=== PATIENT | female | born 2000 | race Caucasian/White ===

== ENCOUNTER → 2018-02-27 13:13 | Outpatient (CLI) | payer OTHER, MEDICAID, SELFPAY ==
[2018-02-27 14:35] LABS: Add Manual Diff / Slide Review NO; Basophils Percent Auto 0.8 % (0-2); Eosinophils Percent Auto 1.1 % (2-4); Hematocrit 39.1 % (36-46); Hemoglobin 12.8 g/dL (12.0-16.0); Lymphocytes Percent Auto 28.6 % (25-40); Mean Corpuscular HGB Conc 32.6 % (30-36); Mean Corpuscular Volume 79.7 fL (80-100); Neutrophils Absolute Auto 5600 /uL (3000-5900); Neutrophils Percent Auto 63.5 % (50-75); Platelet Count 308 X10^3/uL (150-400); Red Blood Cell Count 4.91 X10^6/uL (4.0-5.2); Red Cell Distribution Width 15.3 % (11.6-14.8); White Blood Cell Count 8.9 X10^3/uL (4.5-11.0)
[2018-02-27 16:01] LABS: Hepatitis B Surface Antigen NEGATIVE s/c (NEGATIVE)
[2018-02-27 16:20] LABS: HIV 1 and 2 Antibody NEGATIVE (NEGATIVE); Hep C Virus Ab w/Reflex Quant NEGATIVE s/c (NEGATIVE)
[2018-03-03 09:41] LABS: Rapid Plasma Reagin NON-REACTIVE
== END ==
PROVIDERS: Visit Provider Obstetrics & Gynecology
DX: Z34.91 Encounter for supervision of normal pregnancy, unspecified, first trimester (principal); Z3A.08 8 weeks gestation of pregnancy
CPT/HCPCS: 36415; 80055; 86695; 86696; 86703; 86787; 86803; 86850; 86900; 86901; 87086

== ENCOUNTER → 2018-04-25 15:57 | Outpatient (CLI) | payer OTHER, MEDICAID, SELFPAY ==
[2018-05-02 09:52] LABS: AFP, Serum 29.9 ng/mL; Calc Gestational Age 17.1; Cigarette Smoker N; Donated Egg NOT GIVEN; Donor Egg Age NOT GIVEN; Estriol, Free 0.72 ng/mL; Inhibin A, Dimeric 99 pg/mL; Maternal Weight 285 lbs; Number of Fetuses NOT GIVEN; Previous Pregnancy Down Syndro NOT GIVEN; hCG, MoM 1.35; hCG, Serum 26.8 IU/mL
== END ==
PROVIDERS: Visit Provider Obstetrics & Gynecology
DX: Z34.92 Encounter for supervision of normal pregnancy, unspecified, second trimester (principal); Z3A.16 16 weeks gestation of pregnancy
CPT/HCPCS: 36415; 82105; 82677; 84702; 86336

== ENCOUNTER → 2018-05-19 15:44 | Outpatient (CLI) | payer OTHER, MEDICAID, SELFPAY ==
--- NOTE | 2018-05-19 15:47 | DI.US.S_ITS ---
PROCEDURE: US OB >= 14 WEEKS FETUS INDICATIONS: Anatomy Survey OUTSIDE/PRIOR DATING DATA: Last menstrual period (LMP): Unknown. LMP-based estimated date of delivery (VLADIMIR): N./A.. First dating scan (date and location): 02/24/18. Estimated date of delivery (VLADIMIR) from first dating scan: 10/02/18. TECHNIQUE: Real-time scanning was performed of the fetus, with image documentation and biometric measurements. Endovaginal scanning: Not requested. COMPARISON: [facility], , OB >= 14 WEEKS FETUS, 04/25/2018, 15:46. FINDINGS: General: A single living intrauterine gestation is present. Presentation: Transverse. Placenta: Placental position is anterior, without previa. Amniotic fluid index: 17.3 cm, normal range is 5-24 cm. heart rate: 139 beats per minute. Maternal cervical canal: 4.2 cm long. Normal lower limit is 2.5 cm. biometrics: Biparietal diameter: 20 weeks 2 days Head circumference: 21 weeks Abdominal circumference: 21 weeks 5 days Femur length: 21 weeks 1 day Estimated gestational age from initial scan: 20 weeks 4 days Composite gestational age from present scan: 21 weeks Estimated weight and percentile: 419 g; 86 percentile Measurement variability for biometric dating: +/- 7 days from 14 weeks to 15 weeks 6 days gestation, +/- 10 days from 16 weeks to 21 weeks 6 days gestation, +/- 2 weeks from 22 weeks to 27 weeks 6 days gestation, +/- 3 weeks for 28 weeks gestation or later. weight reference: 4500 g or EFW >90/95% is considered macrosomia or large for gestational age. EFW <10% is small for gestational age. EFW 5% or less is considered intra-uterine growth restriction. Anatomic survey: Neuro: Ventricles are non-dilated at less than 10 mm. Cisterna magna is normal at 3-11 mm. Cerebellum is normal in size and morphology. Nuchal skin fold: Normal at less than 6 mm between 14-21 weeks gestational age. Face: Nose and lips, facial profile are normal. Spine: No evidence for spina bifida. Heart: 4-chambered heart is present, with normal ventricular outflow tracts. Diaphragm: Diaphragm is intact. Stomach: Left-sided stomach is present. Kidneys: No hydronephrosis. Normal is less than 5 mm in 2nd trimester, less than 7 mm in 3rd trimester. Cord: 3-vessel cord has orthotopic insertion. Bladder: Normal in size. Extremities: All 4 extremities identified. IMPRESSION: 1. Single living IUP redemonstrated and interval growth is upper limits of normal. 2. Normal anatomic survey. Dictated by: Bill LAUREN Interpreted: Chino Duran MD on 05/19/2018 at 16:57 Approved by: Chino Duran M.D. on 05/19/2018 at 17:24
== END ==
PROVIDERS: Visit Provider Obstetrics & Gynecology
DX: Z34.82 Encounter for supervision of other normal pregnancy, second trimester (principal); Z3A.21 21 weeks gestation of pregnancy
CPT/HCPCS: 76811

== ENCOUNTER → 2018-06-29 13:36 | Outpatient (CLI) | payer OTHER, MEDICAID, SELFPAY ==
[2018-06-29 15:57] LABS: Hematocrit 35.4 % (36-46); Hemoglobin 11.5 g/dL (12.0-16.0)
[2018-06-29 16:24] LABS: GTT (PREG) 1 Hour PP 50gm Dose 74 mg/dL (76-139)
== END ==
PROVIDERS: Visit Provider Obstetrics & Gynecology
DX: Z34.82 Encounter for supervision of other normal pregnancy, second trimester (principal)
CPT/HCPCS: 36415; 82950; 85014; 85018

== ENCOUNTER → 2018-09-11 14:27 | Outpatient (CLI) | payer OTHER, SELFPAY ==
[2018-09-12 13:53] LABS: Strep Grp B PCR POS for Grp B Strep
== END ==
PROVIDERS: Visit Provider Obstetrics & Gynecology
DX: Z3A.37 37 weeks gestation of pregnancy (principal)
CPT/HCPCS: 87653

== ENCOUNTER 2018-09-25 11:18 | Inpatient (IN) | payer OTHER, MEDICAID, SELFPAY ==
[2018-09-25] MEDS: LACTATED RINGERS 1,000 ML 999 ML IV ×2 (12:31→13:21)
[2018-09-25 12:33] VITALS: BP 130/82
[2018-09-25 13:14] LABS: Add Manual Diff / Slide Review NO; Basophils Absolute Auto 0 /uL (0-100); Basophils Percent Auto 0.4 % (0-2); Eosinophils Absolute Auto 100 /uL (0-450); Eosinophils Percent Auto 0.7 % (2-4); Hematocrit 33.5 % (36-46); Hemoglobin 10.9 g/dL (12.0-16.0); Lymphocytes Absolute Auto 2400 /uL (1100-4500); Mean Corpuscular HGB Conc 32.4 % (30-36); Mean Corpuscular Hemoglobin 25.6 PG (26-34); Monocytes Absolute Auto 500 /uL (0-900); Monocytes Percent Auto 4.7 % (3-14); Neutrophils Absolute Auto 8200 /uL (1500-7000); Neutrophils Percent Auto 73.2 % (50-75); Platelet Count 290 X10^3/uL (150-400); Red Blood Cell Count 4.24 X10^6/uL (4.0-5.2); Red Cell Distribution Width 15.2 % (11.6-14.8); White Blood Cell Count 11.2 X10^3/uL (4.5-11.0)
--- NOTE | 2018-09-25 13:18 | PM.PREOP ---
Pre-operative Note Interval Note History & Physical reviewed/Exam performed by Physician: Yes Changes to H&P: No
[2018-09-25] MEDS: CEFAZOLIN 2 GM/100 ML FROZ.PIGGY IV (13:29)
[2018-09-25] MEDS: CEFAZOLIN 1 GM VIAL IV (13:55)
--- NOTE | 2018-09-25 14:03 | SUR.OPER ---
live female at 1358, apgars 8/9
[2018-09-25] MEDS: ACETAMINOPHEN IV 1,000 MG/100 ML VIAL 400 MG IV (14:10)
--- NOTE | 2018-09-25 14:10 | SUR.OPER ---
Supine on Padded OR bed, head on pillow, safety belt at thigh, arms secured on padded arm boards at <90 degrees abduction. Bump under right buttock. Legs uncrossed with pillow under knees, gel pad to heels, tape over blanket to lower legs.
[2018-09-25 14:52] VITALS: BP 114/68; PULSE 65; RESP 15; TEMP 36.3; O2SAT 95
[2018-09-25 14:56] VITALS: BP 117/64; PULSE 71; RESP 16; O2SAT 96
[2018-09-25 15:00] VITALS: BP 124/67; PULSE 61; RESP 16; O2SAT 96
[2018-09-25] MEDS: LACTATED RINGERS 1,000 ML 125 ML IV (15:30)
--- NOTE | 2018-09-25 19:52 | P.OP_ITS ---
Operative Date/Time/Diagnoses Date of procedure: 09/25/18 Time of procedure: 14:45 Pre-op diagnosis: 39 weeks gestation Previous section Post-op diagnosis: same Procedure: Procedures Operation Date: 09/25/18 13:00 Actual Procedures Side Surgeon p Section-Repeat Aleah Sol MD Indications: 39 weeks gestation Previous section Surgeon: Aleah Sol Spike Machine Operator: Leilani De La Cruz Anesthesia Type: Spinal (With Duramorph) Operative Notes Findings: Live female infant in the vertex presentation Normal uterus, tubes, and ovaries Normal amniotic fluid volume Closure Type: primary Specimen(s): other (Cord blood, placenta) Applied: catheter Estimated blood loss (mL): 600 Blood products transfused: none Procedure in detail: The patient was taken to the operating room where she was placed in the seated position. Spinal anesthesia with Duramorph was administered. The patient was then placed in the dorsal supine position with a leftward tilt. She was prepped and draped in the usual sterile fashion. A timeout was performed. After spinal analgesia was found to be adequate, a Pfannenstiel skin incision was made through the previous incision and carried through to the underlying layer fascia. The fascia was nicked in the midline, and the incision extended bilaterally with the Rebollar scissors. The superior aspect of the fascial incision was grasped with a Bettie clamps, elevated, and the underlying rectus muscles dissected off sharply and bluntly. Attention was then turned to the inferior aspect of this incision which in a similar fashion was grasped with a [place] clamps, elevated, and the underlying rectus muscles dissected off sharply and bluntly. The rectus muscles were in the midline. The peritoneum was identified, grasped between 2 hemostats, and entered sharply with the Metzenbaum scissors. This incision was extended superiorly and inferiorly with good visualization of the bladder. The bladder blade was inserted. The vesicouterine peritoneum was identified, grasped with the pickup, and entered sharply with the Metzenbaum scissors. This incision was extended bilaterally, and the bladder flap was created digitally. The bladder blade was reinserted. The lower uterine segment was incised in a transverse fashion with the scalpel. Upon entering the amniotic sac there was moderate amount of clear amniotic fluid. The 's head was delivered without difficulty. The nose and mouth were suctioned with bulb suction. The remainder of the body delivered without difficulty. The cord was double clamped and cut. The was handed off to waiting RN and RT. The placenta was delivered manually. The uterus was cleared of all clots and debris. The uterine incision was repaired with #1 chromic in a running interlocking fashion, and a second layer the same suture was used for an imbricating layer. For was found to be a ?Rent just below the uterine incision. This was closed with a running interlocking suture and then an imbricating layer for hemostasis. The tubes and ovaries were examined and were found to be normal. The gutters were cleared of all clots and debris. Hemostasis was achieved. The bladder flap was reapproximated using 2-0 Vicryl in a running fashion. The parietal peritoneum was closed using 2-0 Vicryl in a running fashion. The fascia was reapproximated using 0 Vicryl in a running fashion. The subcutaneous layer was copiously irrigated with warm normal saline. 5 simple interrupted sutures of 3-0 Vicryl were placed to reapproximate the subcutaneous layer. The skin was closed with 4-0 undyed Vicryl in a subcuticular fashion. Steri-Strips were placed. An Aquacell dressing was placed. The uterus was expressed of a small amount of old blood. Sponge, lap, and instrument counts were correct x-2. The patient tolerated the procedure well, and was taken to PACU in stable condition. Complications: none Post-operative Condition: stable Disposition: PACU Plan for aftercare: To Center after recovery
[2018-09-25] MEDS: KETOROLAC 30 MG/ML VIAL IV (21:47)
[2018-09-26] MEDS: KETOROLAC 30 MG/ML VIAL IV ×2 (05:27→11:31)
[2018-09-26] MEDS: OXYCODONE/ACETAMINOPHEN 5/325 TABLET 2 TAB PO ×4 (05:36→21:30)
[2018-09-26 07:30] LABS: Hematocrit 31.8 % (36-46); Hemoglobin 10.3 g/dL (12.0-16.0)
[2018-09-26] MEDS: DOCUSATE 250 MG CAPSULE PO (11:33)
[2018-09-26] MEDS: PRENATAL VIT,CALC/IRON/FOLIC 1 TABLET 1 TAB PO (11:33)
[2018-09-26] MEDS: LANOLIN OINT 7 GM 1 APPLIC TOP (16:45)
[2018-09-26 17:14] VITALS: TEMP 37
--- NOTE | 2018-09-26 19:29 | PM.OBPN.1 ---
Subjective - OB Interval history: Patient is a 18-year-old 2 para 2 postop day # 1 status post repeat low-transverse section Patient comments: no complaints, pain well controlled, tolerating diet and other (Voided without the catheter) [place] baby status: doing well [place] feeding status: exclusively breast feeding Date Patient Seen: 09/26/18 Time Patient Seen: 18:00 Exam Vital Signs (past 8 hours): - 09/26/18 17:14 Temperature 98.6 F Oxygen Delivery Method Nasal Cannula Narrative Exam Narrative: Generally: Patient is sitting up in bed, holding , no acute distress Lungs: Clear to auscultation bilaterally Cardiovascular: Regular rate and rhythm Abdomen: Soft, good bowel sounds Fundus: Firm at U -1 Incision: Clean dry and intact with Aquacel dressing Extremities 1+ edema, negative Zeferino's Objective Labs Result Diagrams: 09/26/18 06:55 Labs: Laboratory Results - last 24 hr 09/26/18 06:55 Hgb 10.3 L Hct 31.8 L Assessment & Plan (1) Status post repeat low transverse section: Status: Acute Assessment and plan: Assessment: Postop day # 1 status post repeat low-transverse section, doing very well Plan: Continue routine postoperative care Anticipate discharge 09/27/2018 Current Visit: Yes Plan day: 1 plan OB: routine postop care Time Spent With Patient Total time spent is greater than 50% in coordination of care (as documented) at patient's floor/unit and/or counseling patient: 15-24 minutes
[2018-09-26] MEDS: IBUPROFEN 600 MG TABLET PO (23:29)
[2018-09-27] MEDS: OXYCODONE/ACETAMINOPHEN 5/325 TABLET 2 TAB PO ×4 (01:37→13:27)
[2018-09-27] MEDS: IBUPROFEN 600 MG TABLET PO ×2 (05:32→11:36)
--- NOTE | 2018-09-27 07:30 | PM.OBDS.1 ---
Discharge Providers Date of admission: 09/25/18 11:18 Consults: 09/25/18 15:35 Consult to Parking Enforcement Manager Routine Comment: Discharge provider: Aleah Sol MD Discharge Date: 09/27/18 Summary Date Patient Seen: 09/27/18 Time Patient Seen: 07:31 Hospital Course: Patient is a 18-year-old 2 para 2 who presented on 09/25/2018 for a scheduled repeat section at 39 weeks gestation. Patient underwent a repeat low-transverse section without complication. Her postoperative course was unremarkable she voided without the catheter she tolerated a diet. No nausea or vomiting. Pain well controlled with oral medications. going well. Peripartum Data Delivery Method: Section Laceration description: None Episiotomy description: None Procedures: Spinal anesthesia Repeat low-transverse section complications: none Discharge Diagnosis (1) Status post repeat low transverse section: Status: Acute (2) 39 weeks gestation of : Status: Acute (3) Previous section complicating , with delivery: Status: Acute Status at Discharge Functional status at discharge: independent ambulation Overall status at discharge: patient is progressing back to baseline Time Spent with Patient Total time spent providing and/or coordinating discharge services: Less than 30 minutes Objective Labs Result Diagrams: 09/26/18 06:55 Labs: Laboratory Results - last 24 hr 09/26/18 06:55 Hgb 10.3 L Hct 31.8 L Discharge Plan Discharge Plan Patient Disposition: Home Discharge comment: Call with fever, chills, redness or drainage around the incision, or bleeding vaginally more than a pad an hour No heavy lifting Discharge Med Rec/Prescriptions Prescriptions: New oxycodone-acetaminophen [Percocet] 5-325 mg tablet 1 tab PO Q4-6H PRN (Reason: pain) Qty: 30 RF: 0 ibuprofen 600 mg tablet 600 mg PO TID PRN (Reason: pain) Qty: 30 RF: 0 Follow up/Referrals: Aleah Sol MD [Physician] - 1 Week (Aquacel dressing removal) Provider Discharge Instructions Diet: Diet as Tolerated Activity: No heavy lifting No intercourse Skin/Wound/Dressing Care Report to your healthcare provider any signs of infection, such as:: chills, fever, increased pain, unusual drainage and unusual redness Dressing: Do not remove Aquacel dressing Visit Report/Discharge Packet Instructions: DI for Discharge Data Attending Provider: Aleah Sol Admit Date/Time: 09/25/18 11:18
[2018-09-27] MEDS: PRENATAL VIT,CALC/IRON/FOLIC 1 TABLET 1 TAB PO (09:25)
[2018-09-27] MEDS: DOCUSATE 250 MG CAPSULE PO (09:25)
[2018-09-27] MEDS: TET,DIPH,PERTUSS(ACELL),VAC/PF 0.5 ML SYRINGE IM (11:34)
== END 2018-09-27 15:01 | disposition home or self-care (01) | DRG 788 ==
PROVIDERS: Admitting Provider Obstetrics & Gynecology; Visit Provider Obstetrics & Gynecology
PROC: 10D00Z1 Extraction of Products of Conception, Low, Open Approach (ICD-10-PCS; CPT 59514; principal; 2018-09-25 13:00)
DX: O34.219 Maternal care for unspecified type scar from previous cesarean delivery (principal); Z3A.39 39 weeks gestation of pregnancy; Z37.0 Single live birth
CPT/HCPCS: 36415; 59050; 59510; 59514; 85014; 85018; 85025; 86850; 86900; 86901; 90715; J0131; J0690; J1885; J2274; J2590

== ENCOUNTER → 2019-12-19 11:56 | Outpatient (CLI) | payer OTHER, SELFPAY ==
--- NOTE | 2019-12-19 11:57 | DI.RAD.S_ITS ---
PROCEDURE: XR WRIST LT MIN 3V INDICATIONS: left wrist pain TECHNIQUE: 4 views of the wrist were acquired. COMPARISON: None. FINDINGS: Bones: No fractures or dislocations. No suspicious bony lesions. Scaphoid view: The scaphoid shows no trauma Soft tissues: No suspicious soft tissue calcifications. IMPRESSION: No trauma found, source of asymmetric wrist pain is not identified. Dictated by: Robert Baugh M.D. on 12/19/2019 at 12:39 Approved by: Robert Baugh M.D. on 12/19/2019 at 12:39
== END ==
PROVIDERS: Referring Provider Family Medicine; Visit Provider Family Medicine
DX: S63.502A Unspecified sprain of left wrist, initial encounter (principal); M25.532 Pain in left wrist; X58.XXXA Exposure to other specified factors, initial encounter
CPT/HCPCS: 73110

== ENCOUNTER → 2020-01-17 16:05 | Outpatient (CLI) | payer OTHER, SELFPAY ==
[2020-01-17 18:01] LABS: HCG Quantitative /Beta subunit < 2.4 mIU/mL
== END ==
PROVIDERS: Family Provider Family Medicine; PCP Student in an Organized Health Care Education/Training Program; Referring Provider Obstetrics & Gynecology; Visit Provider Obstetrics & Gynecology
DX: Z32.01 Encounter for pregnancy test, result positive (principal)
CPT/HCPCS: 36415; 84702

== ENCOUNTER → 2020-01-18 16:18 | Outpatient (CLI) | payer OTHER, MEDICAID, SELFPAY ==
--- NOTE | 2020-01-18 16:20 | DI.US.S_ITS ---
PROCEDURE: US PELVIC COMPLETE INDICATIONS: PELVIC PAIN TECHNIQUE: Real-time scanning was performed of the pelvic organs, with image documentation. Additional endovaginal scanning was necessary due to incomplete visualization of the adnexal and endometrial structures by transabdominal scanning. COMPARISON: None. FINDINGS: Transabdominal scanning: Limited scanning through the kidneys shows no hydronephrosis. No pathologic free abdominal or pelvic fluid. Endovaginal scanning: Uterus: Uterus is normal in size at 8.9 x 4.1 x 5.5 cm. The endometrium measures 5.6 mm in combined thickness. There is trace endometrial fluid. Ovaries: Right ovary measures 2.9 x 1.9 x 2.3 cm. Left ovary measures 2.7 x 1.5 x 2.2 cm. Enlarged varicose veins are seen in the adnexa bilaterally. IMPRESSION: 1. There is trace endometrial fluid, which may be related to menses. Recommend clinical correlation. 2. Ovaries are only seen on transabdominal scan. Ovaries are grossly normal. No adnexal mass. 3. Varicose veins in adnexa bilaterally suggesting pelvic congestion. Dictated by: Carmen Mohamud M.D. on 01/18/2020 at 19:50 Approved by: Carmen Mohamud M.D. on 01/18/2020 at 23:55
== END ==
PROVIDERS: Family Provider Family Medicine; PCP Student in an Organized Health Care Education/Training Program; Referring Provider Obstetrics & Gynecology; Visit Provider Obstetrics & Gynecology
DX: R10.2 Pelvic and perineal pain (principal); I86.2 Pelvic varices
CPT/HCPCS: 76830; 76856

== ENCOUNTER → 2020-02-19 16:21 | Outpatient (CLI) | payer OTHER, MEDICAID, SELFPAY ==
[2020-02-19 18:12] LABS: Follicle Stimulating Hormone 4.45 mIU/mL
[2020-02-19 18:22] LABS: Prolactin 11.5 ng/mL (3.0-18.6)
[2020-02-19 18:26] LABS: TSH w/ Reflex to FT4 1.43 uIU/mL (0.47-4.68)
[2020-02-24 13:36] LABS: Estrogen 233 pg/mL (.)
== END ==
PROVIDERS: Family Provider Family Medicine; PCP Student in an Organized Health Care Education/Training Program; Referring Provider Obstetrics & Gynecology; Visit Provider Obstetrics & Gynecology
DX: N91.2 Amenorrhea, unspecified (principal)
CPT/HCPCS: 36415; 82672; 83001; 84146; 84443; 87086

== ENCOUNTER → 2020-03-07 09:08 | Outpatient (CLI) | payer OTHER, MEDICAID, SELFPAY ==
--- NOTE | 2020-03-07 09:10 | DI.RAD.S_ITS ---
PROCEDURE: XR CERVICAL SPINE 2V OR 3V INDICATIONS: Persistent radicular pain left arm TECHNIQUE: 3 view(s) of the cervical spine were acquired. COMPARISON: None. FINDINGS: Bones: No fractures or dislocations to the T1 level. The lateral masses of C1 appear intact on the odontoid view. No suspicious bony lesions. Loss of lordosis which could be related to muscle spasm, rigidity or simply positional. Soft tissues: No prevertebral soft tissue swelling. IMPRESSION: Loss of lordosis otherwise normal C-spine. Dictated by: Bill Perkins [facility] Interpreted: Marky Gunter MD on 03/07/2020 at 9:24 Approved by: Marky Gunter M.D. on 03/07/2020 at 9:44
== END ==
PROVIDERS: Family Provider Family Medicine; PCP Student in an Organized Health Care Education/Training Program; Referring Provider Family Medicine; Visit Provider Family Medicine
DX: M54.2 Cervicalgia (principal); M79.602 Pain in left arm
CPT/HCPCS: 72040

== ENCOUNTER 2020-03-13 08:15 | Outpatient (RCR) | payer OTHER, MEDICAID, SELFPAY ==
--- NOTE | 2020-01-28 16:50 | PT.OIE ---
Current Diagnoses Muscle weakness (generalized) (01/28/20) Pain in right arm (01/28/20) Pain in left arm (01/28/20) Unspecified sprain of right wrist, initial encounter (01/28/20) Unspecified sprain of left wrist, initial encounter (01/28/20) Past Medical History (Last Reviewed 01/06/20 @ 14:21 by Kirill Weiss DO) Chicken pox (Resolved) Left wrist sprain (Acute) Past Surgical History (Last Updated 02/24/18 @ 08:59 by Jayleen Roger) Status post delivery (Resolved 08/10/17) Visit Care Team Role Provider Type Kirill Weiss DO Family Provider Physician Specialty: Family Practice Address: [address] [place] [address], [id number] Email: [email or web address] Michael Chowdhury MD Attending Provider Physician Primary Care Provider Referring Provider Specialty: Internal Medicine Address: [address] [place] [address], [address], [address] Email: [email or web address] Initial Evaluation PT-OP-A Visit Information Start: 01/24/20 20:46 Freq: Status: Active Protocol: Document 01/28/20 08:19 LRN (Rec: 01/28/20 09:04 KATY [id number]) Out-Patient Physical Therapy Visit Information Visit Information Visit Type Initial Evaluation Visit Start Time 08:19 Visit Stop Time 09:04 Total Visit Minutes 45 Visit Number 1 Evaluation Information Evaluation Date 01/28/20 Precautions Precautions Hx of Depression PT-OP-B Current Condition Start: 01/24/20 20:46 Freq: Status: Active Protocol: Document 01/28/20 08:19 LRN (Rec: 01/28/20 09:04 LRN [id number]) Current Condition History of Current Condition Onset Date 2 yrs ago, worsened 1 month ago when she picked up something heavy. 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 She states 3 months ago she was getting better, because she wasn't using her hands, then reports picking up something heavy that had handles and she heard a pop in her L wrist and was not able to use it for the rest of the day. Her L wrist pain has worsened with random numbness, tingling, and sharp pain in the wrists. She describes her pain as starting at the L little finger PIP joint that shoots up the arm to the lateral elbow. She states sometimes the pain starts at the lateral elbow shooting up to the posterior shoulder. She reports similar onset to the R hand and forearm to a lesser extent. Pt is L handed. Prior Treatments and Tests Pt reports X-rays taken showed no bony changes. Future Testing and Treatments Planned None. Treatment Goals Patient/Caregiver Goals Pt goals with therapy is to get released to work when better. Pt goal is to figure out what is going on. Pt goal is to functionally be able to lift and use hands without pain. 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 Current Functional Impairments (Reported) Functional Limitations- ADL's Pt is limited in use of her L hand and to a lesser extent her R hand. 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 Limited with lifting due to onset of bilateral wrist pain. Personal Factors Other Personal Factors That May Effect Pt is mother of 2 young Therapy/Recovery children ages 2.5 and 1.5 yrs old. History of depression. PT-OP-C Subjective Start: 01/24/20 20:46 Freq: Status: Active Protocol: Document 01/28/20 08:19 LRN (Rec: 01/28/20 19:09 LRN [id number]) OP-PT Pain Assessment Pain Assessment Grid Paper Pain Assessment Grid Completed Yes Location R hand Pain Location Details Radial & Ulnar sides, entire thumb & 5th digit, & palm Intensity 6 Scale Used Numeric (0 - 10) Description Aching,Sharp,Shooting Frequency Intermittent Radiating Location Radiates to elbow Pain Aggravating Factors Changing Position,Activity, Lifting Pain Alleviating Factors Massage L hand Pain Location Details Radial and Ulnar side, starting thumb DIP & 5th digit tip to elbow, & palm. Intensity 8 Scale Used Numeric (0 - 10) Description Aching,Sharp,Shooting Frequency Intermittent Radiating Location Radiates to elbow, sometimes elbow to posterior shoulder Pain Aggravating Factors Activity PT-OP-F Manual Assessment Start: 01/24/20 20:46 Freq: Status: Active Protocol: Document 01/28/20 08:19 LRN (Rec: 01/28/20 19:09 LRN [id number]) Manual Assessments Soft Tissue Assessment Soft Tissue Mobility Assessment L forearm tender to palpation anterior and posteriorly, and mildly in the Biceps, minimally in Triceps. Joint Mobility Assessment Joint Mobility Assessment Increased L wrist joint mobility with PA glide, Ulnar glide & carpals. PT-OP-H Neuro Start: 01/24/20 20:46 Freq: Status: Active Protocol: Document 01/28/20 08:19 LRN (Rec: 01/28/20 19:09 LRN [id number]) Sensation Evaluation Gross Sensation Gross Sensation WNL Deep Tendon Reflex & Clonus Assessment Deep Tendon Reflex Left Brachioradialis Deep Tendon Reflex 0 Absent Left Bicep Deep Tendon Reflex 0 Absent PT-OP-K Range of Motion Start: 01/24/20 20:46 Freq: Status: Active Protocol: Document 01/28/20 08:19 LRN (Rec: 01/28/20 19:09 LRN [id number]) Elbow/Forearm Range of Motion Elbow/Forearm Right Active Elbow/Forearm ROM WFL Yes ROM Testing Position Sitting Left Active Elbow/Forearm ROM WFL Yes ROM Testing Position Sitting Elbow/Forearm ROM Limitations Elbow/Forearm ROM Limitations Pain Comments Bilateral active elbow flex/ ext is WNL. Pain at wrist with supination/ pronation end range. Wrist Goniometric Range of Motion Wrist Right Flexion Passive (degrees) 90 Extension Passive (degrees) 90 Left Flexion Passive (degrees) 90 Extension Passive (degrees) 90 PT-OP-M Strength Start: 01/24/20 20:46 Freq: Status: Active Protocol: Document 01/28/20 08:19 LRN (Rec: 01/28/20 19:09 LRN [id number]) Elbow/Forearm Strength Elbow and Forearm Manual Muscle Testing Right Extension (C7) 4- Good- Comments 5/5 except as indicated above. Left Extension (C7) 4- Good- Supination 4+ Good+ Comments 5/5 except as indicated above. Wrist Strength Wrist Manual Muscle Testing Right Flexion (C7) 5 Normal Extension (C6) 5 Normal Ulnar Deviation 5 Normal Radial Deviation 5 Normal Comments Lateral wrist pain testing supination. Anterior wrist pain testing flexion. Left Flexion (C7) 5 Normal Extension (C6) 5 Normal Ulnar Deviation 5 Normal Radial Deviation 5 Normal Comments Lateral wrist pain with testing extension. Forarm pain with testing Ulnar deviation. Finger/Thumb Strength Finger Manual Muscle Testing Right Thumb Reason Not Measured WFL Left Thumb Flexion (fingers C8) 5 Normal Extension (thumb C8) 4- Good- Adduction 5 Normal Abduction (fingers T1) 4- Good- Comments Fingers 2-4 strength is normal except with extension pain is present at lateral Ulnar side . Extensor digiti minimi is 5/5, no pain at wrist during testing. 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 Discussed modification to lifting at home to minimize stress at the wrist, using wrist splint. Activities Self-Care/Home Management Activities Pt to follow RICE treatment for wrists and forearms for pain management. Pt to use cryotherapy to L forearm and self massage to manage pain. PT-OP-T Assessment and Plan Start: 01/24/20 20:46 Freq: Status: Active Protocol: Document 01/28/20 08:19 LRN (Rec: 01/28/20 09:04 LRN [id number]) Physical Therapy Assessment Rehab Potential Rehabilitation Potential Fair Evaluation Complexity Number of Personal Factors/Comorbidities 1-2 Number of Body Systems Impaired 4 or More Clinical Presentation at Evaluation Evolving Impairments Impairments Activity Tolerance,Functional Activities,Pain,ROM,Soft Tissue Mobility,Strength Goals Three Impairment Pain R hand/arm rated 6/10. Short Term Goal (STG) Decrease R hand/arm pain to 4/ 10 and decrease onset by 50%. STG Duration 03/10/20 Gift Shop Assistant Goal (LTG) Decrease R hand/arm pain rated 1-2/10 with minimal onset. LTG Duration 04/27/20 Two Impairment Pain L hand/arm rated 8/10. Short Term Goal (STG) Decrease L hand/arm pain to 6/ 10, and decreased onset by 50% . STG Duration 03/10/20 Assisted Goal (LTG) Decrease L hand/arm pain to 3- 4/10 with minimal onset of severe pain. LTG Duration 04/27/20 One Impairment Lacks appropriate HEP Assisted Goal (LTG) Pt will be independent with a self care HEP to manage onset of symptoms. LTG Duration 04/27/20 Assessment Summary Assessment Pt presents with possible carpel tunnel of L wrist, as well as generalized swelling and pain in the L forearm. The pt has weakness of her dominant hand (left) as well as increased joint mobility of the wrist and carpel bones. Her right wrist appears to have soft tissue dysfunction with pain at the wrist ulnar and radial side with use. Further screening for possible cervical involvement is needed at next appointment. The pt may need further assessment for soft tissue dysfunction (MRI) at the L wrist if no improvement is made in 4-6 weeks. The pt will benefit from skilled physical therapy to decreased inflammation and soft tissue dysfunction of the UE's (focus on forearms) bilaterally and to improve strength and stability at the wrists bilaterally. Therapy to minimize any cervical or shoulder involvement will probably be needed. Physical Therapy Plan Frequency and Duration Frequency of Treatment 2x/Week Plan of Care Start Date 01/28/20 Plan of Care End Date 04/27/20 Therapeutic Interventions Therapeutic Interventions Home Exercise Program,Joint Mobilizations,Manual Therapy, Self-Care/Home Management,Soft Tissue Mobilization,Taping, Therapeutic Exercises Modalities Cold Pack/Ice Massage,Electric Stimulation,Hot Packs, Iontophoresis,Ultrasound Other Therapeutic Interventions 4mg/mL Dexamethasone with Sodium Phosphate. Other Referrals/Consults Referrals/Consults Recommended If pt is not able to make progress with therapy it would be recommended further imaging to rule out ligamentous dysfunction at the wrist and carpel bones. Next Visit Focus/Plan Next Note Type Treatment Note Next Visit Plan Further education for pain management is needed to discuss nighttime splinting. Assess for cervical involvement, Assess strength of opposition Assess for changes with active elbow, forearm, wrist and finger ROM. Pt to complete UE QuickDASH, Assess lifting tolerance. STM to forearms, US/modalities to L carpel tunnel, forearms. Initiate active wrist ROM ex's . Strengthening of wrist.
--- NOTE | 2020-01-28 16:50 | PT.OPPOC ---
Physical, Occupational & Speech Therapy At [facility] Current Diagnoses Unspecified sprain of left wrist, initial encounter (01/28/20) Visit Care Team Role Provider Type Kirill Weiss DO Family Provider Physician Specialty: Family Practice Address: [address] [place] [address], [id number] Email: [email or web address] Michael Chowdhury MD Attending Provider Physician Primary Care Provider Referring Provider Specialty: Internal Medicine Address: [address] [place] [address], [address], [address] Email: [email or web address] Plan Of Care PT-OP-T Assessment and Plan Start: 01/24/20 20:46 Freq: Status: Active Protocol: Document 01/28/20 08:19 LRN (Rec: 01/28/20 09:04 LRN [id number]) Physical Therapy Assessment Rehab Potential Rehabilitation Potential Fair Evaluation Complexity Number of Personal Factors/Comorbidities 1-2 Number of Body Systems Impaired 4 or More Clinical Presentation at Evaluation Evolving Impairments Impairments Activity Tolerance,Functional Activities,Pain,ROM,Soft Tissue Mobility,Strength Goals Three Impairment Pain R hand/arm rated 6/10. Short Term Goal (STG) Decrease R hand/arm pain to 4/ 10 and decrease onset by 50%. STG Duration 03/10/20 Transport Corps Officer Goal (LTG) Decrease R hand/arm pain rated 1-2/10 with minimal onset. LTG Duration 04/27/20 Two Impairment Pain L hand/arm rated 8/10. Short Term Goal (STG) Decrease L hand/arm pain to 6/ 10, and decreased onset by 50% . STG Duration 03/10/20 Transport Corps Officer Goal (LTG) Decrease L hand/arm pain to 3- 4/10 with minimal onset of severe pain. LTG Duration 04/27/20 One Impairment Lacks appropriate HEP Nursing Home Goal (LTG) Pt will be independent with a self care HEP to manage onset of symptoms. LTG Duration 04/27/20 Assessment Summary Assessment Pt presents with possible carpel tunnel of L wrist, as well as generalized swelling and pain in the L forearm. The pt has weakness of her dominant hand (left) as well as increased joint mobility of the wrist and carpel bones. Her right wrist appears to have soft tissue dysfunction with pain at the wrist ulnar and radial side with use. Further screening for possible cervical involvement is needed at next appointment. The pt may need further assessment for soft tissue dysfunction (MRI) at the L wrist if no improvement is made in 4-6 weeks. The pt will benefit from skilled physical therapy to decreased inflammation and soft tissue dysfunction of the UE's (focus on forearms) bilaterally and to improve strength and stability at the wrists bilaterally. Therapy to minimize any cervical or shoulder involvement will probably be needed. Physical Therapy Plan Frequency and Duration Frequency of Treatment 2x/Week Plan of Care Start Date 01/28/20 Plan of Care End Date 04/27/20 Therapeutic Interventions Therapeutic Interventions Home Exercise Program,Joint Mobilizations,Manual Therapy, Self-Care/Home Management,Soft Tissue Mobilization,Taping, Therapeutic Exercises Modalities Cold Pack/Ice Massage,Electric Stimulation,Hot Packs, Iontophoresis,Ultrasound Other Therapeutic Interventions 4mg/mL Dexamethasone with Sodium Phosphate. Other Referrals/Consults Referrals/Consults Recommended If pt is not able to make progress with therapy it would be recommended further imaging to rule out ligamentous dysfunction at the wrist and carpel bones. Next Visit Focus/Plan Next Note Type Treatment Note Next Visit Plan Further education for pain management is needed to discuss nighttime splinting. Assess for cervical involvement, Assess strength of opposition Assess for changes with active elbow, forearm, wrist and finger ROM. Pt to complete UE QuickDASH, Assess lifting tolerance. STM to forearms, US/modalities to L carpel tunnel, forearms. Initiate active wrist ROM ex's . Strengthening of wrist. Plan of Care Dates Plan of Care Start Date 01/28/20 Plan of Care End Date 04/27/20 Electronically Signed by: Viki Hammond, PT 01/30/20 1185 Please Sign and Return: I have reviewed this Plan of Care and certify that the skilled therapy services above are required to meet the patient?s needs. Physician Signature Date Printed Name and Credentials Clinical Instructor Signature Printed Name and Credentials
--- NOTE | 2020-01-28 16:50 | PT.OPPOC ---
Physical, Occupational & Speech Therapy At [facility] Current Diagnoses Muscle weakness (generalized) (01/28/20) Pain in right arm (01/28/20) Pain in left arm (01/28/20) Unspecified sprain of right wrist, initial encounter (01/28/20) Unspecified sprain of left wrist, initial encounter (01/28/20) Visit Care Team Role Provider Type Kirill Weiss DO Family Provider Physician Specialty: Family Practice Address: [address] [place] [address] Email: [email or web address] Michael Chowdhury MD Attending Provider Physician Primary Care Provider Referring Provider Specialty: Internal Medicine Address: [address] [place] [address], [address] [address] Email: [email or web address] Plan Of Care PT-OP-T Assessment and Plan Start: 01/24/20 20:46 Freq: Status: Active Protocol: Document 01/28/20 08:19 LRN (Rec: 01/28/20 09:04 LRN [id number]) Physical Therapy Assessment Rehab Potential Rehabilitation Potential Fair Evaluation Complexity Number of Personal Factors/Comorbidities 1-2 Number of Body Systems Impaired 4 or More Clinical Presentation at Evaluation Evolving Impairments Impairments Activity Tolerance,Functional Activities,Pain,ROM,Soft Tissue Mobility,Strength Goals Three Impairment Pain R hand/arm rated 6/10. Short Term Goal (STG) Decrease R hand/arm pain to 4/ 10 and decrease onset by 50%. STG Duration 03/10/20 Refrigerating Engineer Head Goal (LTG) Decrease R hand/arm pain rated 1-2/10 with minimal onset. LTG Duration 04/27/20 Two Impairment Pain L hand/arm rated 8/10. Short Term Goal (STG) Decrease L hand/arm pain to 6/ 10, and decreased onset by 50% . STG Duration 03/10/20 Mcc Goal (LTG) Decrease L hand/arm pain to 3- 4/10 with minimal onset of severe pain. LTG Duration 04/27/20 One Impairment Lacks appropriate HEP Refrigerating Engineer Head Goal (LTG) Pt will be independent with a self care HEP to manage onset of symptoms. LTG Duration 04/27/20 Assessment Summary Assessment Pt presents with possible carpel tunnel of L wrist, as well as generalized swelling and pain in the L forearm. The pt has weakness of her dominant hand (left) as well as increased joint mobility of the wrist and carpel bones. Her right wrist appears to have soft tissue dysfunction with pain at the wrist ulnar and radial side with use. Further screening for possible cervical involvement is needed at next appointment. The pt may need further assessment for soft tissue dysfunction (MRI) at the L wrist if no improvement is made in 4-6 weeks. The pt will benefit from skilled physical therapy to decreased inflammation and soft tissue dysfunction of the UE's (focus on forearms) bilaterally and to improve strength and stability at the wrists bilaterally. Therapy to minimize any cervical or shoulder involvement will probably be needed. Physical Therapy Plan Frequency and Duration Frequency of Treatment 2x/Week Plan of Care Start Date 01/28/20 Plan of Care End Date 04/27/20 Therapeutic Interventions Therapeutic Interventions Home Exercise Program,Joint Mobilizations,Manual Therapy, Self-Care/Home Management,Soft Tissue Mobilization,Taping, Therapeutic Exercises Modalities Cold Pack/Ice Massage,Electric Stimulation,Hot Packs, Iontophoresis,Ultrasound Other Therapeutic Interventions 4mg/mL Dexamethasone with Sodium Phosphate. Other Referrals/Consults Referrals/Consults Recommended If pt is not able to make progress with therapy it would be recommended further imaging to rule out ligamentous dysfunction at the wrist and carpel bones. Next Visit Focus/Plan Next Note Type Treatment Note Next Visit Plan Further education for pain management is needed to discuss nighttime splinting. Assess for cervical involvement, Assess strength of opposition Assess for changes with active elbow, forearm, wrist and finger ROM. Pt to complete UE QuickDASH, Assess lifting tolerance. STM to forearms, US/modalities to L carpel tunnel, forearms. Initiate active wrist ROM ex's . Strengthening of wrist. Plan of Care Dates Plan of Care Start Date 01/28/20 Plan of Care End Date 04/27/20 Electronically Signed by: Viki Hammond, PT 01/30/20 0942 Please Sign and Return: I have reviewed this Plan of Care and certify that the skilled therapy services above are required to meet the patient?s needs. Physician Signature Date Printed Name and Credentials Clinical Instructor Signature Printed Name and Credentials
--- NOTE | 2020-01-28 16:50 | PT.OIE ---
Current Diagnoses Unspecified sprain of left wrist, initial encounter (01/28/20) Past Medical History (Last Reviewed 01/06/20 @ 14:21 by Kirill Weiss DO) Chicken pox (Resolved) Left wrist sprain (Acute) Past Surgical History (Last Updated 02/24/18 @ 08:59 by Jayleen Roger) Status post delivery (Resolved 08/10/17) Visit Care Team Role Provider Type Kirill Weiss DO Family Provider Physician Specialty: Family Practice Address: [address] [place] [address], [id number] Email: [email or web address] Michael Chowdhury MD Attending Provider Physician Primary Care Provider Referring Provider Specialty: Internal Medicine Address: [address] [place] [address], [address], [place], [address] Email: [email or web address] Physical Therapy Initial Evaluation PT-OP-A Visit Information Start: 01/24/20 20:46 Freq: Status: Active Protocol: Document 01/28/20 08:19 LRN (Rec: 01/28/20 09:04 LRN [id number]) Out-Patient Physical Therapy Visit Information Visit Information Visit Type Initial Evaluation Visit Start Time 08:19 Visit Stop Time 09:04 Total Visit Minutes 45 Visit Number 1 Evaluation Information Evaluation Date 01/28/20 Precautions Precautions Hx of Depression PT-OP-B Current Condition Start: 01/24/20 20:46 Freq: Status: Active Protocol: Document 01/28/20 08:19 LRN (Rec: 01/28/20 09:04 LRN [id number]) Current Condition History of Current Condition Onset Date 2 yrs ago, worsened 1 month ago when she picked up something heavy. 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 She states 3 months ago she was getting better, because she wasn't using her hands, then reports picking up something heavy that had handles and she heard a pop in her L wrist and was not able to use it for the rest of the day. Her L wrist pain has worsened with random numbness, tingling, and sharp pain in the wrists. She describes her pain as starting at the L little finger PIP joint that shoots up the arm to the lateral elbow. She states sometimes the pain starts at the lateral elbow shooting up to the posterior shoulder. She reports similar onset to the R hand and forearm to a lesser extent. Pt is L handed. Prior Treatments and Tests Pt reports X-rays taken showed no bony changes. Future Testing and Treatments Planned None. Treatment Goals Patient/Caregiver Goals Pt goals with therapy is to get released to work when better. Pt goal is to figure out what is going on. Pt goal is to functionally be able to lift and use hands without pain. 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 Current Functional Impairments (Reported) Functional Limitations- ADL's Pt is limited in use of her L hand and to a lesser extent her R hand. 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 Limited with lifting due to onset of bilateral wrist pain. Personal Factors Other Personal Factors That May Effect Pt is mother of 2 young Therapy/Recovery children ages 2.5 and 1.5 yrs old. History of depression. PT-OP-C Subjective Start: 01/24/20 20:46 Freq: Status: Active Protocol: Document 01/28/20 08:19 LRN (Rec: 01/28/20 19:09 LRN [id number]) OP-PT Pain Assessment Pain Assessment Grid Paper Pain Assessment Grid Completed Yes Location R hand Pain Location Details Radial & Ulnar sides, entire thumb & 5th digit, & palm Intensity 6 Scale Used Numeric (0 - 10) Description Aching,Sharp,Shooting Frequency Intermittent Radiating Location Radiates to elbow Pain Aggravating Factors Changing Position,Activity, Lifting Pain Alleviating Factors Massage L hand Pain Location Details Radial and Ulnar side, starting thumb DIP & 5th digit tip to elbow, & palm. Intensity 8 Scale Used Numeric (0 - 10) Description Aching,Sharp,Shooting Frequency Intermittent Radiating Location Radiates to elbow, sometimes elbow to posterior shoulder Pain Aggravating Factors Activity PT-OP-F Manual Assessment Start: 01/24/20 20:46 Freq: Status: Active Protocol: Document 01/28/20 08:19 LRN (Rec: 01/28/20 19:09 LRN [id number]) Manual Assessments Soft Tissue Assessment Soft Tissue Mobility Assessment L forearm tender to palpation anterior and posteriorly, and mildly in the Biceps, minimally in Triceps. Joint Mobility Assessment Joint Mobility Assessment Increased L wrist joint mobility with PA glide, Ulnar glide & carpals. PT-OP-H Neuro Start: 01/24/20 20:46 Freq: Status: Active Protocol: Document 01/28/20 08:19 LRN (Rec: 01/28/20 19:09 LRN [id number]) Sensation Evaluation Gross Sensation Gross Sensation WNL Deep Tendon Reflex & Clonus Assessment Deep Tendon Reflex Left Brachioradialis Deep Tendon Reflex 0 Absent Left Bicep Deep Tendon Reflex 0 Absent PT-OP-K Range of Motion Start: 01/24/20 20:46 Freq: Status: Active Protocol: Document 01/28/20 08:19 LRN (Rec: 01/28/20 19:09 LRN [id number]) Elbow/Forearm Range of Motion Elbow/Forearm Right Active Elbow/Forearm ROM WFL Yes ROM Testing Position Sitting Left Active Elbow/Forearm ROM WFL Yes ROM Testing Position Sitting Elbow/Forearm ROM Limitations Elbow/Forearm ROM Limitations Pain Comments Bilateral active elbow flex/ ext is WNL. Pain at wrist with supination/ pronation end range. Wrist Goniometric Range of Motion Wrist Right Flexion Passive (degrees) 90 Extension Passive (degrees) 90 Left Flexion Passive (degrees) 90 Extension Passive (degrees) 90 PT-OP-M Strength Start: 01/24/20 20:46 Freq: Status: Active Protocol: Document 01/28/20 08:19 LRN (Rec: 01/28/20 19:09 LRN [id number]) Elbow/Forearm Strength Elbow and Forearm Manual Muscle Testing Right Extension (C7) 4- Good- Comments 5/5 except as indicated above. Left Extension (C7) 4- Good- Supination 4+ Good+ Comments 5/5 except as indicated above. Wrist Strength Wrist Manual Muscle Testing Right Flexion (C7) 5 Normal Extension (C6) 5 Normal Ulnar Deviation 5 Normal Radial Deviation 5 Normal Comments Lateral wrist pain testing supination. Anterior wrist pain testing flexion. Left Flexion (C7) 5 Normal Extension (C6) 5 Normal Ulnar Deviation 5 Normal Radial Deviation 5 Normal Comments Lateral wrist pain with testing extension. Forarm pain with testing Ulnar deviation. Finger/Thumb Strength Finger Manual Muscle Testing Right Thumb Reason Not Measured WFL Left Thumb Flexion (fingers C8) 5 Normal Extension (thumb C8) 4- Good- Adduction 5 Normal Abduction (fingers T1) 4- Good- Comments Fingers 2-4 strength is normal except with extension pain is present at lateral Ulnar side . Extensor digiti minimi is 5/5, no pain at wrist during testing. 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 Discussed modification to lifting at home to minimize stress at the wrist, using wrist splint. Activities Self-Care/Home Management Activities Pt to follow RICE treatment for wrists and forearms for pain management. Pt to use cryotherapy to L forearm and self massage to manage pain. PT-OP-T Assessment and Plan Start: 01/24/20 20:46 Freq: Status: Active Protocol: Document 01/28/20 08:19 LRN (Rec: 01/28/20 09:04 LRN [id number]) Physical Therapy Assessment Rehab Potential Rehabilitation Potential Fair Evaluation Complexity Number of Personal Factors/Comorbidities 1-2 Number of Body Systems Impaired 4 or More Clinical Presentation at Evaluation Evolving Impairments Impairments Activity Tolerance,Functional Activities,Pain,ROM,Soft Tissue Mobility,Strength Goals Three Impairment Pain R hand/arm rated 6/10. Short Term Goal (STG) Decrease R hand/arm pain to 4/ 10 and decrease onset by 50%. STG Duration 03/10/20 Longterm Goal (LTG) Decrease R hand/arm pain rated 1-2/10 with minimal onset. LTG Duration 04/27/20 Two Impairment Pain L hand/arm rated 8/10. Short Term Goal (STG) Decrease L hand/arm pain to 6/ 10, and decreased onset by 50% . STG Duration 03/10/20 Longterm Goal (LTG) Decrease L hand/arm pain to 3- 4/10 with minimal onset of severe pain. LTG Duration 04/27/20 One Impairment Lacks appropriate HEP Boxcar Weigher Goal (LTG) Pt will be independent with a self care HEP to manage onset of symptoms. LTG Duration 04/27/20 Assessment Summary Assessment Pt presents with possible carpel tunnel of L wrist, as well as generalized swelling and pain in the L forearm. The pt has weakness of her dominant hand (left) as well as increased joint mobility of the wrist and carpel bones. Her right wrist appears to have soft tissue dysfunction with pain at the wrist ulnar and radial side with use. Further screening for possible cervical involvement is needed at next appointment. The pt may need further assessment for soft tissue dysfunction (MRI) at the L wrist if no improvement is made in 4-6 weeks. The pt will benefit from skilled physical therapy to decreased inflammation and soft tissue dysfunction of the UE's (focus on forearms) bilaterally and to improve strength and stability at the wrists bilaterally. Therapy to minimize any cervical or shoulder involvement will probably be needed. Physical Therapy Plan Frequency and Duration Frequency of Treatment 2x/Week Plan of Care Start Date 01/28/20 Plan of Care End Date 04/27/20 Therapeutic Interventions Therapeutic Interventions Home Exercise Program,Joint Mobilizations,Manual Therapy, Self-Care/Home Management,Soft Tissue Mobilization,Taping, Therapeutic Exercises Modalities Cold Pack/Ice Massage,Electric Stimulation,Hot Packs, Iontophoresis,Ultrasound Other Therapeutic Interventions 4mg/mL Dexamethasone with Sodium Phosphate. Other Referrals/Consults Referrals/Consults Recommended If pt is not able to make progress with therapy it would be recommended further imaging to rule out ligamentous dysfunction at the wrist and carpel bones. Next Visit Focus/Plan Next Note Type Treatment Note Next Visit Plan Further education for pain management is needed to discuss nighttime splinting. Assess for cervical involvement, Assess strength of opposition Assess for changes with active elbow, forearm, wrist and finger ROM. Pt to complete UE QuickDASH, Assess lifting tolerance. STM to forearms, US/modalities to L carpel tunnel, forearms. Initiate active wrist ROM ex's . Strengthening of wrist.
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
--- NOTE | 2020-02-04 08:34 | PT-OP ANOTE ---
Pt reports she had cx the appt. Schedulers did not update. Pt states she needs to reschedule 02/07/20 appt. and will call to reschedule.
--- NOTE | 2020-02-07 14:38 | PT.OTN ---
Current Diagnoses Muscle weakness (generalized) (02/07/20) Pain in right arm (02/07/20) Pain in left arm (02/07/20) Unspecified sprain of right wrist, initial encounter (02/07/20) Unspecified sprain of left wrist, initial encounter (02/07/20) Physical Therapy Treatment Note PT-OP-A Visit Information Start: 01/24/20 20:46 Freq: Status: Active Protocol: Document 02/07/20 13:45 SP (Rec: 02/07/20 15:23 SP [id number]) Out-Patient Physical Therapy Visit Information Visit Information Visit Type Treatment Note Visit Start Time 13:45 Visit Stop Time 14:38 Total Visit Minutes 53 Visit Number 3 Number of DRAPERY INSPECTOR Visits 1 PT-OP-B Current Condition Start: 01/24/20 20:46 Freq: Status: Active Protocol: Document 01/28/20 08:19 LRN (Rec: 01/28/20 09:04 LRN [id number]) Current Condition History of Current Condition Onset Date 2 yrs ago, worsened 1 month ago when she picked up something heavy. 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 She states 3 months ago she was getting better, because she wasn't using her hands, then reports picking up something heavy that had handles and she heard a pop in her L wrist and was not able to use it for the rest of the day. Her L wrist pain has worsened with random numbness, tingling, and sharp pain in the wrists. She describes her pain as starting at the L little finger PIP joint that shoots up the arm to the lateral elbow. She states sometimes the pain starts at the lateral elbow shooting up to the posterior shoulder. She reports similar onset to the R hand and forearm to a lesser extent. Pt is L handed. Prior Treatments and Tests Pt reports X-rays taken showed no bony changes. Future Testing and Treatments Planned None. Treatment Goals Patient/Caregiver Goals Pt goals with therapy is to get released to work when better. Pt goal is to figure out what is going on. Pt goal is to functionally be able to lift and use hands without pain. 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 Current Functional Impairments (Reported) Functional Limitations- ADL's Pt is limited in use of her L hand and to a lesser extent her R hand. 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 Limited with lifting due to onset of bilateral wrist pain. Personal Factors Other Personal Factors That May Effect Pt is mother of 2 young Therapy/Recovery children ages 2.5 and 1.5 yrs old. History of depression. PT-OP-C Subjective Start: 01/24/20 20:46 Freq: Status: Active Protocol: Document 02/07/20 13:45 SP (Rec: 02/07/20 15:23 SP [id number]) OP-PT Subjective Patient Comments Patient Comments Pt stated feeling little better today, has been wearing L wrist brace purchased on [employer] to support L wrist during work and seem to help. 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 PT-OP-F Manual Assessment Start: 01/24/20 20:46 Freq: Status: Active Protocol: Document 01/28/20 08:19 LRN (Rec: 01/28/20 19:09 LRN [id number]) Manual Assessments Soft Tissue Assessment Soft Tissue Mobility Assessment L forearm tender to palpation anterior and posteriorly, and mildly in the Biceps, minimally in Triceps. Joint Mobility Assessment Joint Mobility Assessment Increased L wrist joint mobility with PA glide, Ulnar glide & carpals. PT-OP-H Neuro Start: 01/24/20 20:46 Freq: Status: Active Protocol: Document 01/28/20 08:19 LRN (Rec: 01/28/20 19:09 LRN [id number]) Sensation Evaluation Gross Sensation Gross Sensation WNL Deep Tendon Reflex & Clonus Assessment Deep Tendon Reflex Left Brachioradialis Deep Tendon Reflex 0 Absent Left Bicep Deep Tendon Reflex 0 Absent PT-OP-K Range of Motion Start: 01/24/20 20:46 Freq: Status: Active Protocol: Document 02/07/20 13:45 SP (Rec: 02/07/20 15:23 SP [id number]) Shoulder Goniometric Range of Motion Shoulder L Testing Position Supine AROM Flexion 160 Abduction 144 External Rotation at 45 degrees 78 Abduction Elbow/Forearm Range of Motion Elbow/Forearm Right Active Elbow/Forearm ROM WFL Yes ROM Testing Position Sitting Left Active Elbow/Forearm ROM WFL Yes ROM Testing Position Supine PT-OP-L Special Tests Start: 01/24/20 20:46 Freq: Status: Active Protocol: Document 01/31/20 18:15 LRN (Rec: 01/31/20 18:13 LRN [id number]) Special Tests Cervical Spine Special Tests Traction Test Results Positive Comments Decrease in L shoulder pain Foraminal Compression Test Results Negative bilaterally Vertebral Artery Test Results Negative bilaterally PT-OP-M Strength Start: 01/24/20 20:46 Freq: Status: Active Protocol: Document 01/31/20 08:15 LRN (Rec: 01/31/20 18:02 LRN [id number]) Finger/Thumb Strength Finger Manual Muscle Testing Right Thumb Reason Not Measured WFL Left Thumb Flexion (fingers C8) 5 Normal Extension (thumb C8) 4- Good- Adduction 5 Normal Abduction (fingers T1) 4- Good- Comments Fingers 2-4 strength is normal except with extension pain is present at lateral Ulnar side . Extensor digiti minimi is 5/5, no pain at wrist during testing. Hand Attorney/Pinch Strength Hand Dominance Hand Dominance Left Hand Strength Right Comments Opposition strength: 2nd, 3rd, and 5th digits 5/5. 4th digit 4-/5. Left Comments Opposition strength: 2nd, 3rd digits 5/5. 4th and 5th digits 4-/5. PT-OP-Q Treatments Start: 01/24/20 20:46 Freq: Status: Active Protocol: Document 02/07/20 13:45 SP (Rec: 02/07/20 15:23 SP [id number]) Therapeutic Exercises Supine Exercises L wrist active pron/sup Supine Exercise Name active ROM Reps/Minutes 5x2 Comments feeling discomfort more pronation than supination Thumb AROM Supine Exercise Name Thumb IP/CMC/MCP ROM Side left Reps/Minutes x10 Comments cuing for supporting segments for isolation, noted incr irriation w/reps>10 L wrist PROM Supine Exercise Name PROM stretch flex/ext Side left Reps/Minutes 10 x8 L wrist active ext Supine Exercise Name Active extension Side left Reps/Minutes 10x L wrist active UD/RD Supine Exercise Name Active stretch Side left Reps/Minutes 10 x 8 Comments cued for set up and elbow straight Sitting Exercises finger extension Sitting Exercise Name 1-4 digits Side left Equipment Used rubberband anchored at wrist Reps/Minutes 10 each finger Comments cued slow controlled con/ecc directioning theraputty thumb Sitting Exercise Name flexion, add, thumb print Side left Resistance L 1 (yellow) Reps/Minutes x10 rep each Comments good tolerance, >10 reps radial wrist increased irritation theraputty Sitting Exercise Name finger flexion 1-4 digits ( broad geothermal production manager and individual finger flexion) Side left Resistance L2 (yellow) Reps/Minutes 10 reps each finger Opposition Sitting Exercise Name Opposition of all digits Side left Comments x10 reps Standing Exercises body mechanics lifting box/ tray Side bilateral Resistance 2-12 # DB Reps/Minutes x5 reps each Comments cued body mechanics lifting Box 12#, 2 # assimulate tray place/removal Manual Therapy Treatment Joint Mobilizations L APs 1-5, wrist AP/ lateral/Medial Joint L 1-5th MCP, wrist Direction AP, lateral Grade II Body Position Supine Comments gentle small range to tolerance PT-OP-R Modalities Start: 01/24/20 20:46 Freq: Status: Active Protocol: Document 02/07/20 13:45 SP (Rec: 02/07/20 15:23 SP [id number]) Ultrasound Therapy Treatment L carpel tunnel Treatment Duration (minutes) 8 Patient Position Sitting Applicator Size (cm2) 2 Frequency Setting (mHz) 3 Mode Setting Pulsed Duty Cycle 50% Intensity Setting (w/cm2) 1.0 Comments L wrist in gravity assisted extension PT-OP-T Assessment and Plan Start: 01/24/20 20:46 Freq: Status: Active Protocol: Document 02/07/20 13:45 SP (Rec: 02/07/20 15:23 SP [id number]) Physical Therapy Assessment Goals Three Impairment Pain R hand/arm rated 6/10. Short Term Goal (STG) Decrease R hand/arm pain to 4/ 10 and decrease onset by 50%. STG Duration 03/10/20 Cnc Machine Programmer Goal (LTG) Decrease R hand/arm pain rated 1-2/10 with minimal onset. LTG Duration 04/27/20 Two Impairment Pain L hand/arm rated 8/10. Short Term Goal (STG) Decrease L hand/arm pain to 6/ 10, and decreased onset by 50% . (01/31/20: Pain decreased after treatment from 4/10 to 1/10.) STG Duration 03/10/20 Cnc Machine Programmer Goal (LTG) Decrease L hand/arm pain to 3- 4/10 with minimal onset of severe pain. LTG Duration 04/27/20 One Impairment Lacks appropriate HEP Cnc Machine Programmer Goal (LTG) Pt will be independent with a self care HEP to manage onset of symptoms. LTG Duration 04/27/20 Assessment Summary Assessment Assessed shld and elbow ROM during tx, see measurements. Pt reponded exercises ok within first 10 reps including added theraputty but reporting irritation > 10 reps and more pain more lateral than medial up toward elbow, pronation end feel, ulnar deviation end feel, all finger and thumb flexion motions. Pt was able to lift approx 12 # BUE assimulating box lift/ carry from floor level and 2# BUE assimulating placement/ removal tray from cart but greater than 12#/2# triggered increased pain over ulnar border of L wrist toward elbow . Pt is stated that her kitchen position requires lifting heavier than these tolerated weights assessed today. Also pronation motions worse than supination motions as though opening up a jar and washing even a couple of dishes at home is still to painful. Pt stated is experiencing less pain with L wrist brace assessing temperatures during screening position at this time and using RUE when needed to allow for L wrist recovery and tolerance. Pt stated the US at end of tx does give relief. Physical Therapy Plan Frequency and Duration Frequency of Treatment 2x/Week Plan of Care Start Date 01/28/20 Plan of Care End Date 04/27/20 Therapeutic Interventions Therapeutic Interventions Home Exercise Program,Joint Mobilizations,Manual Therapy, Self-Care/Home Management,Soft Tissue Mobilization,Taping, Therapeutic Exercises Modalities Cold Pack/Ice Massage,Electric Stimulation,Hot Packs, Iontophoresis,Ultrasound Other Therapeutic Interventions 4mg/mL Dexamethasone with Sodium Phosphate. Next Visit Focus/Plan Next Note Type Treatment Note Next Visit Plan Ask patient's response to last tx: assessed AROM L shld AROM and L elbow flex/ ext in supine today, lifting # tolerance in standing. Added theraputty hand/thumb exercises last tx. ssess for changes with active elbow, forearm, wrist and finger ROM. Assess lifting tolerance. STM to forearms, US/modalities to L carpel tunnel, forearms. Initiate active wrist ROM ex's . Strengthening of wrist
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
--- NOTE | 2020-02-18 16:05 | PT.OTN ---
Current Diagnoses Muscle weakness (generalized) (02/18/20) Pain in right arm (02/18/20) Pain in left arm (02/18/20) Unspecified sprain of right wrist, initial encounter (02/18/20) Unspecified sprain of left wrist, initial encounter (02/18/20) Physical Therapy Treatment Note PT-OP-A Visit Information Start: 01/24/20 20:46 Freq: Status: Active Protocol: Document 02/18/20 15:04 LRN (Rec: 02/18/20 16:04 LRN [id number]) Out-Patient Physical Therapy Visit Information Visit Information Visit Type Treatment Note Visit Start Time 15:04 Visit Stop Time 15:50 Total Visit Minutes 46 Visit Number 5 Evaluation Information Evaluation Date 01/28/20 Precautions Precautions Hx of Depression (02/07/20) Lift Tolerance: approx 12 # BUE assimulating box lift/carry from floor level and 2# BUE assimulating placement/ removal tray from cart but greater than 12#/2# triggered increased pain. PT-OP-B Current Condition Start: 01/24/20 20:46 Freq: Status: Active Protocol: Document 01/28/20 08:19 LRN (Rec: 01/28/20 09:04 LRN [id number]) Current Condition History of Current Condition Onset Date 2 yrs ago, worsened 1 month ago when she picked up something heavy. 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 She states 3 months ago she was getting better, because she wasn't using her hands, then reports picking up something heavy that had handles and she heard a pop in her L wrist and was not able to use it for the rest of the day. Her L wrist pain has worsened with random numbness, tingling, and sharp pain in the wrists. She describes her pain as starting at the L little finger PIP joint that shoots up the arm to the lateral elbow. She states sometimes the pain starts at the lateral elbow shooting up to the posterior shoulder. She reports similar onset to the R hand and forearm to a lesser extent. Pt is L handed. Prior Treatments and Tests Pt reports X-rays taken showed no bony changes. Future Testing and Treatments Planned None. Treatment Goals Patient/Caregiver Goals Pt goals with therapy is to get released to work when better. Pt goal is to figure out what is going on. Pt goal is to functionally be able to lift and use hands without pain. 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 Current Functional Impairments (Reported) Functional Limitations- ADL's Pt is limited in use of her L hand and to a lesser extent her R hand. 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 Limited with lifting due to onset of bilateral wrist pain. Personal Factors Other Personal Factors That May Effect Pt is mother of 2 young Therapy/Recovery children ages 2.5 and 1.5 yrs old. History of depression. PT-OP-C Subjective Start: 01/24/20 20:46 Freq: Status: Active Protocol: Document 02/18/20 15:04 LRN (Rec: 02/18/20 16:04 LRN [id number]) OP-PT Subjective Patient Comments Patient Comments No change but has been icing and stretching. Wakes with hand fisted. Tried using a towel roll in hand, but it gets lost through the night. Pain at the wrist is 2/10, hasn't been using it much but has iced 2x. L forearm is not sore today. L shoulder is sore due to sleeping on it wrong. Only L wrist hurts, no little finger. PT-OP-F Manual Assessment Start: 01/24/20 20:46 Freq: Status: Active Protocol: Document 01/28/20 08:19 LRN (Rec: 01/28/20 19:09 LRN [id number]) Manual Assessments Soft Tissue Assessment Soft Tissue Mobility Assessment L forearm tender to palpation anterior and posteriorly, and mildly in the Biceps, minimally in Triceps. Joint Mobility Assessment Joint Mobility Assessment Increased L wrist joint mobility with PA glide, Ulnar glide & carpals. PT-OP-H Neuro Start: 01/24/20 20:46 Freq: Status: Active Protocol: Document 01/28/20 08:19 LRN (Rec: 01/28/20 19:09 LRN [id number]) Sensation Evaluation Gross Sensation Gross Sensation WNL Deep Tendon Reflex & Clonus Assessment Deep Tendon Reflex Left Brachioradialis Deep Tendon Reflex 0 Absent Left Bicep Deep Tendon Reflex 0 Absent PT-OP-K Range of Motion Start: 01/24/20 20:46 Freq: Status: Active Protocol: Document 02/18/20 15:04 LRN (Rec: 02/18/20 16:04 LRN [id number]) Wrist Goniometric Range of Motion Wrist Right Ulnar Deviation Active (degrees) 20 Radial Deviation Active (degrees) 20 Left Ulnar Deviation Active (degrees) 26 Radial Deviation Active (degrees) 20 PT-OP-L Special Tests Start: 01/24/20 20:46 Freq: Status: Active Protocol: Document 01/31/20 18:15 LRN (Rec: 01/31/20 18:13 LRN [id number]) Special Tests Cervical Spine Special Tests Traction Test Results Positive Comments Decrease in L shoulder pain Foraminal Compression Test Results Negative bilaterally Vertebral Artery Test Results Negative bilaterally PT-OP-M Strength Start: 01/24/20 20:46 Freq: Status: Active Protocol: Document 01/31/20 08:15 LRN (Rec: 01/31/20 18:02 LRN [id number]) Finger/Thumb Strength Finger Manual Muscle Testing Right Thumb Reason Not Measured WFL Left Thumb Flexion (fingers C8) 5 Normal Extension (thumb C8) 4- Good- Adduction 5 Normal Abduction (fingers T1) 4- Good- Comments Fingers 2-4 strength is normal except with extension pain is present at lateral Ulnar side . Extensor digiti minimi is 5/5, no pain at wrist during testing. Hand Time Clock Inspector/Pinch Strength Hand Dominance Hand Dominance Left Hand Strength Right Comments Opposition strength: 2nd, 3rd, and 5th digits 5/5. 4th digit 4-/5. Left Comments Opposition strength: 2nd, 3rd digits 5/5. 4th and 5th digits 4-/5. PT-OP-Q Treatments Start: 01/24/20 20:46 Freq: Status: Active Protocol: Document 02/18/20 15:04 LRN (Rec: 02/18/20 16:04 LRN [id number]) Therapeutic Exercises Supine Exercises L wrist active UD/RD Supine Exercise Name Stretch UD/RD Side left Reps/Minutes 60 x 2 Comments Cued for elbow straight Sitting Exercises L wrist ext stretch Sitting Exercise Name L wrist ext stretch with elbow straight & flexed. Side left Resistance 3' Reps/Minutes 60 each Comments Better stretch felt with elbow extended, physical cuing needed. Supination Sitting Exercise Name Stretch into supination Side left Reps/Minutes 60 x 2 finger extension Sitting Exercise Name 1-4 digits & thumb Side left Equipment Used rubberband Reps/Minutes 10x Comments cued slow controlled con/ecc directioning Self-Care/Home Management Treatment Education Patient Education Home Exercise Program Activities Self-Care/Home Management Activities I/S pt to re-start finger ext ex (active lifts or use of rubberband (long rubberband issued). PT-OP-R Modalities Start: 01/24/20 20:46 Freq: Status: Active Protocol: Document 02/18/20 15:04 LRN (Rec: 02/18/20 16:04 LRN [id number]) Paraffin Bath Treatment Left Hand Treatment Technique Dip-immersion Wax Temperature (degrees F) 50 Number Wax Layers (layers) 8 Duration (minutes) 10 Ultrasound Therapy Treatment L carpel tunnel Treatment Duration (minutes) 8 Patient Position Sitting Applicator Size (cm2) 2 Frequency Setting (mHz) 3 Mode Setting Pulsed Duty Cycle 50% Intensity Setting (w/cm2) 1.0 Comments L wrist in gravity assisted extension PT-OP-T Assessment and Plan Start: 01/24/20 20:46 Freq: Status: Active Protocol: Document 02/18/20 15:04 LRN (Rec: 02/18/20 16:04 LRN [id number]) Physical Therapy Assessment Goals Three Impairment Pain R hand/arm rated 6/10. Short Term Goal (STG) Decrease R hand/arm pain to 4/ 10 and decrease onset by 50%. STG Duration 03/10/20 [facility] Goal (LTG) Decrease R hand/arm pain rated 1-2/10 with minimal onset. LTG Duration 04/27/20 Two Impairment Pain L hand/arm rated 8/10. Short Term Goal (STG) Decrease L hand/arm pain to 6/ 10, and decreased onset by 50% . 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 LTG Duration 04/27/20 One Impairment Lacks appropriate HEP [facility] Goal (LTG) Pt will be independent with a self care HEP to manage onset of symptoms. LTG Duration 04/27/20 Progress Towards Goals Progress Towards Goals Slow Progress due to Activity Tolerance Progress Comments Pain at start of therapy 2/10 in the lateral wrist was 2/10, after therapy 0/10. Assessment Summary Assessment Pt may need night splint of L wrist due to fisting at night. No soreness in the wrist flexor or extensor muscle bellies. Pt able to perform finger ext without pain. Physical Therapy Plan Frequency and Duration Frequency of Treatment 2x/Week Plan of Care Start Date 01/28/20 Plan of Care End Date 04/27/20 Next Visit Focus/Plan Next Note Type Treatment Note Next Visit Plan Assess (measure if limitations ) active wrist ROM (flex, ext, UD, RD) Assess finger ROM for limitations. US/modalities to L carpel tunnel, forearms. Initiate active painfree wrist ROM ex's, Strengthening of wrist when pain is eliminated or very minimal. STM to forearms if needed, Further screening for cervical involvement with L elbow> little finger pain. Might try manual cervical traction and mechanical if helpful.
--- NOTE | 2020-02-21 16:29 | PT.OTN ---
Current Diagnoses Muscle weakness (generalized) (02/21/20) Pain in right arm (02/21/20) Pain in left arm (02/21/20) Unspecified sprain of right wrist, initial encounter (02/21/20) Unspecified sprain of left wrist, initial encounter (02/21/20) Physical Therapy Treatment Note PT-OP-A Visit Information Start: 01/24/20 20:46 Freq: Status: Active Protocol: Document 02/21/20 15:05 LRN (Rec: 02/21/20 16:23 LRN [id number]) Out-Patient Physical Therapy Visit Information Visit Information Visit Type Treatment Note Visit Start Time 15:05 Visit Stop Time 15:51 Total Visit Minutes 46 Visit Number 6 Evaluation Information Evaluation Date 01/28/20 Precautions Precautions Hx of Depression (02/07/20) Lift Tolerance: approx 12 # BUE assimulating box lift/carry from floor level and 2# BUE assimulating placement/ removal tray from cart but greater than 12#/2# triggered increased pain. PT-OP-B Current Condition Start: 01/24/20 20:46 Freq: Status: Active Protocol: Document 01/28/20 08:19 LRN (Rec: 01/28/20 09:04 LRN [id number]) Current Condition History of Current Condition Onset Date 2 yrs ago, worsened 1 month ago when she picked up something heavy. 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 She states 3 months ago she was getting better, because she wasn't using her hands, then reports picking up something heavy that had handles and she heard a pop in her L wrist and was not able to use it for the rest of the day. Her L wrist pain has worsened with random numbness, tingling, and sharp pain in the wrists. She describes her pain as starting at the L little finger PIP joint that shoots up the arm to the lateral elbow. She states sometimes the pain starts at the lateral elbow shooting up to the posterior shoulder. She reports similar onset to the R hand and forearm to a lesser extent. Pt is L handed. Prior Treatments and Tests Pt reports X-rays taken showed no bony changes. Future Testing and Treatments Planned None. Treatment Goals Patient/Caregiver Goals Pt goals with therapy is to get released to work when better. Pt goal is to figure out what is going on. Pt goal is to functionally be able to lift and use hands without pain. 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 Current Functional Impairments (Reported) Functional Limitations- ADL's Pt is limited in use of her L hand and to a lesser extent her R hand. 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 Limited with lifting due to onset of bilateral wrist pain. Personal Factors Other Personal Factors That May Effect Pt is mother of 2 young Therapy/Recovery children ages 2.5 and 1.5 yrs old. History of depression. PT-OP-C Subjective Start: 01/24/20 20:46 Freq: Status: Active Protocol: Document 02/21/20 15:05 LRN (Rec: 02/21/20 16:23 LRN [id number]) OP-PT Subjective Patient Comments Patient Comments Hasn't been hurting as much as before. Pain is not as frequent, ~50% of the waking hours. Pain is slight pain in R lateral pinky finger, 1/10. PT-OP-F Manual Assessment Start: 01/24/20 20:46 Freq: Status: Active Protocol: Document 01/28/20 08:19 LRN (Rec: 01/28/20 19:09 LRN [id number]) Manual Assessments Soft Tissue Assessment Soft Tissue Mobility Assessment L forearm tender to palpation anterior and posteriorly, and mildly in the Biceps, minimally in Triceps. Joint Mobility Assessment Joint Mobility Assessment Increased L wrist joint mobility with PA glide, Ulnar glide & carpals. PT-OP-H Neuro Start: 01/24/20 20:46 Freq: Status: Active Protocol: Document 01/28/20 08:19 LRN (Rec: 01/28/20 19:09 LRN [id number]) Sensation Evaluation Gross Sensation Gross Sensation WNL Deep Tendon Reflex & Clonus Assessment Deep Tendon Reflex Left Brachioradialis Deep Tendon Reflex 0 Absent Left Bicep Deep Tendon Reflex 0 Absent PT-OP-K Range of Motion Start: 01/24/20 20:46 Freq: Status: Active Protocol: Document 02/21/20 15:05 LRN (Rec: 02/21/20 16:23 LRN [id number]) Wrist Goniometric Range of Motion Wrist Right Flexion Active (degrees) 66 Extension Active (degrees) 74 Ulnar Deviation Active (degrees) 20 Radial Deviation Active (degrees) 20 Left Flexion Active (degrees) 44 Extension Active (degrees) 44 Ulnar Deviation Active (degrees) 26 Radial Deviation Active (degrees) 20 ROM Limitations Wrist Limitations of Range of Motion Pain Comments L hand, pain at 4th & 5th digits. Finger Goniometric Range of Motion Finger Right Fifth Finger ROM WFL Yes Right Fourth Finger ROM WFL Yes Finger ROM Limitations Finger ROM Limitations Pain Comments L hand digits 4th & 5th digits : MCP Jt - WNL, PIP Jt - decreased 25%, DIP-decreased 10%. PT-OP-L Special Tests Start: 01/24/20 20:46 Freq: Status: Active Protocol: Document 01/31/20 18:15 LRN (Rec: 01/31/20 18:13 LRN [id number]) Special Tests Cervical Spine Special Tests Traction Test Results Positive Comments Decrease in L shoulder pain Foraminal Compression Test Results Negative bilaterally Vertebral Artery Test Results Negative bilaterally PT-OP-M Strength Start: 01/24/20 20:46 Freq: Status: Active Protocol: Document 01/31/20 08:15 LRN (Rec: 01/31/20 18:02 LRN [id number]) Finger/Thumb Strength Finger Manual Muscle Testing Right Thumb Reason Not Measured WFL Left Thumb Flexion (fingers C8) 5 Normal Extension (thumb C8) 4- Good- Adduction 5 Normal Abduction (fingers T1) 4- Good- Comments Fingers 2-4 strength is normal except with extension pain is present at lateral Ulnar side . Extensor digiti minimi is 5/5, no pain at wrist during testing. Hand Wire Roller/Pinch Strength Hand Dominance Hand Dominance Left Hand Strength Right Comments Opposition strength: 2nd, 3rd, and 5th digits 5/5. 4th digit 4-/5. Left Comments Opposition strength: 2nd, 3rd digits 5/5. 4th and 5th digits 4-/5. PT-OP-Q Treatments Start: 01/24/20 20:46 Freq: Status: Active Protocol: Document 02/21/20 15:05 LRN (Rec: 02/21/20 16:23 LRN [id number]) Therapeutic Exercises Supine Exercises Wrist AROM Supine Exercise Name Wrist AROM Side bilateral Comments ROM taken Sitting Exercises Tricep ext Sitting Exercise Name Elbows above shoulders to start Side bilateral Resistance 2# wrapped above wrists Reps/Minutes 10x 3 Elbow curls Sitting Exercise Name Elbow curls: palm to body, palm up, palm down Side bilateral Resistance 4# wraped above wrists. Reps/Minutes 10x each L wrist ext stretch Sitting Exercise Name Moving into L wrist ext w/ elbow straight for stretch Side left Reps/Minutes 10 x 10 Supination Sitting Exercise Name Stretch into supination Side left Reps/Minutes 60 x 2 finger extension Sitting Exercise Name 1-4 digits & thumb Side left Equipment Used Lifts from table Reps/Minutes 10x each finger Comments cued slow controlled con/ecc directioning Standing Exercises Elbow Ext Standing Exercise Name Elbow Ext Equipment Used Lev 2 TBand, Strap to romeo in door Reps/Minutes 2x Comments TBand above wrist Elbow Curl Standing Exercise Name Elbow curls: palm to body, palm up, palm down Side left Equipment Used Lev 2 TBand Reps/Minutes 2x each Comments TBand above wrist Self-Care/Home Management Treatment Education Patient Education Home Exercise Program Activities Self-Care/Home Management Activities Issued Lev 2 TBand and White strap to hook TB in door. I/S , demonstrated, reviewed w/pt HEP: Elbow curls (3 positions ) and elbow ext, with TBand wrapped above the wrist. PT-OP-R Modalities Start: 01/24/20 20:46 Freq: Status: Active Protocol: Document 02/21/20 15:05 LRN (Rec: 02/21/20 16:23 [facility] [id number]) Paraffin Bath Treatment Left Hand Treatment Technique Dip-immersion:Pt had wax on for ~25' Wax Temperature (degrees F) 50 Number Wax Layers (layers) 6 Duration (minutes) 10 Patient Tolerance Good Ultrasound Therapy Treatment L carpel tunnel Treatment Duration (minutes) 8 Patient Position Sitting Applicator Size (cm2) 2 Frequency Setting (mHz) 3 Mode Setting Pulsed Duty Cycle 50% Intensity Setting (w/cm2) 1.0 Comments L wrist in gravity assisted extension PT-OP-T Assessment and Plan Start: 01/24/20 20:46 Freq: Status: Active Protocol: Document 02/21/20 15:05 LRN (Rec: 02/21/20 16:23 LRN [id number]) Physical Therapy Assessment Goals Three Impairment Pain R hand/arm rated 6/10. Short Term Goal (STG) Decrease R hand/arm pain to 4/ 10 and decrease onset by 50%. STG Duration 03/10/20 (02/21/20: MET GOAL) Longterm Goal (LTG) Decrease R hand/arm pain rated 1-2/10 with minimal onset. LTG Duration 04/27/20 Two Impairment Pain L hand/arm rated 8/10. Short Term Goal (STG) Decrease L hand/arm pain to 6/ 10, and decreased onset by 50% . (01/31/20: Pain decreased after treatment from 4/10 to 1/10.) STG Duration 03/10/20 (02/21/20: MET GOAL) Longterm Goal (LTG) Decrease L hand/arm pain to 3- 4/10 with minimal onset of severe pain. LTG Duration 04/27/20 One Impairment Lacks appropriate HEP Software Project Manager Goal (LTG) Pt will be independent with a self care HEP to manage onset of symptoms. LTG Duration 04/27/20 (02/21/20: Progressing) Progress Towards Goals Progress Comments L lateral hand pain at start was 1/10, ended with intermittent pain of /10.. Assessment Summary Assessment Pt Pain is decreasing with rest, stretch, & ice. Pt is very weak in the biceps and triceps. Pt finger mobility of L hand is decreased for flex of 4th & 5th digit PIP & DIP joints. Physical Therapy Plan Frequency and Duration Frequency of Treatment 2x/Week Plan of Care Start Date 01/28/20 Plan of Care End Date 04/27/20 Next Visit Focus/Plan Next Note Type Treatment Note Next Visit Plan Strengthening of Biceps/ Triceps/Forearm, Paraffin Dip & US/modalities to L carpel tunnel, forearms. Active painfree wrist ROM ex's , Strengthening of wrist when pain is eliminated or very minimal. STM to forearms if needed, Further screening for cervical involvement with L elbow> little finger pain. Might try manual cervical traction and mechanical if helpful.
--- NOTE | 2020-02-25 16:42 | PT.OTN ---
Current Diagnoses Muscle weakness (generalized) (02/25/20) Pain in right arm (02/25/20) Pain in left arm (02/25/20) Unspecified sprain of right wrist, initial encounter (02/25/20) Unspecified sprain of left wrist, initial encounter (02/25/20) Physical Therapy Treatment Note PT-OP-A Visit Information Start: 01/24/20 20:46 Freq: Status: Active Protocol: Document 02/25/20 14:59 LRN (Rec: 02/25/20 16:32 LRN [id number]) Out-Patient Physical Therapy Visit Information Visit Information Visit Type Treatment Note Visit Start Time 14:59 Visit Stop Time 15:53 Total Visit Minutes 56 Visit Number 7 Evaluation Information Evaluation Date 01/28/20 Precautions Precautions Hx of Depression (02/07/20) Lift Tolerance: approx 12 # BUE assimulating box lift/carry from floor level and 2# BUE assimulating placement/ removal tray from cart but greater than 12#/2# triggered increased pain. PT-OP-B Current Condition Start: 01/24/20 20:46 Freq: Status: Active Protocol: Document 01/28/20 08:19 LRN (Rec: 01/28/20 09:04 LRN [id number]) Current Condition History of Current Condition Onset Date 2 yrs ago, worsened 1 month ago when she picked up something heavy. 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 She states 3 months ago she was getting better, because she wasn't using her hands, then reports picking up something heavy that had handles and she heard a pop in her L wrist and was not able to use it for the rest of the day. Her L wrist pain has worsened with random numbness, tingling, and sharp pain in the wrists. She describes her pain as starting at the L little finger PIP joint that shoots up the arm to the lateral elbow. She states sometimes the pain starts at the lateral elbow shooting up to the posterior shoulder. She reports similar onset to the R hand and forearm to a lesser extent. Pt is L handed. Prior Treatments and Tests Pt reports X-rays taken showed no bony changes. Future Testing and Treatments Planned None. Treatment Goals Patient/Caregiver Goals Pt goals with therapy is to get released to work when better. Pt goal is to figure out what is going on. Pt goal is to functionally be able to lift and use hands without pain. 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 Current Functional Impairments (Reported) Functional Limitations- ADL's Pt is limited in use of her L hand and to a lesser extent her R hand. 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 Limited with lifting due to onset of bilateral wrist pain. Personal Factors Other Personal Factors That May Effect Pt is mother of 2 young Therapy/Recovery children ages 2.5 and 1.5 yrs old. History of depression. PT-OP-C Subjective Start: 01/24/20 20:46 Freq: Status: Active Protocol: Document 02/25/20 14:59 LRN (Rec: 02/25/20 16:32 LRN [id number]) OP-PT Subjective Patient Comments Patient Comments States her R wrist does pretty good if she can remember to keep her hand open. PT-OP-F Manual Assessment Start: 01/24/20 20:46 Freq: Status: Active Protocol: Document 01/28/20 08:19 LRN (Rec: 01/28/20 19:09 LRN [id number]) Manual Assessments Soft Tissue Assessment Soft Tissue Mobility Assessment L forearm tender to palpation anterior and posteriorly, and mildly in the Biceps, minimally in Triceps. Joint Mobility Assessment Joint Mobility Assessment Increased L wrist joint mobility with PA glide, Ulnar glide & carpals. PT-OP-H Neuro Start: 01/24/20 20:46 Freq: Status: Active Protocol: Document 01/28/20 08:19 LRN (Rec: 01/28/20 19:09 LRN [id number]) Sensation Evaluation Gross Sensation Gross Sensation WNL Deep Tendon Reflex & Clonus Assessment Deep Tendon Reflex Left Brachioradialis Deep Tendon Reflex 0 Absent Left Bicep Deep Tendon Reflex 0 Absent PT-OP-K Range of Motion Start: 01/24/20 20:46 Freq: Status: Active Protocol: Document 02/21/20 15:05 LRN (Rec: 02/21/20 16:23 LRN [id number]) Wrist Goniometric Range of Motion Wrist Right Flexion Active (degrees) 66 Extension Active (degrees) 74 Ulnar Deviation Active (degrees) 20 Radial Deviation Active (degrees) 20 Left Flexion Active (degrees) 44 Extension Active (degrees) 44 Ulnar Deviation Active (degrees) 26 Radial Deviation Active (degrees) 20 ROM Limitations Wrist Limitations of Range of Motion Pain Comments L hand, pain at 4th & 5th digits. Finger Goniometric Range of Motion Finger Right Fifth Finger ROM WFL Yes Right Fourth Finger ROM WFL Yes Finger ROM Limitations Finger ROM Limitations Pain Comments L hand digits 4th & 5th digits : MCP Jt - WNL, PIP Jt - decreased 25%, DIP-decreased 10%. PT-OP-L Special Tests Start: 01/24/20 20:46 Freq: Status: Active Protocol: Document 01/31/20 18:15 LRN (Rec: 01/31/20 18:13 LRN [id number]) Special Tests Cervical Spine Special Tests Traction Test Results Positive Comments Decrease in L shoulder pain Foraminal Compression Test Results Negative bilaterally Vertebral Artery Test Results Negative bilaterally PT-OP-M Strength Start: 01/24/20 20:46 Freq: Status: Active Protocol: Document 01/31/20 08:15 LRN (Rec: 01/31/20 18:02 LRN [id number]) Finger/Thumb Strength Finger Manual Muscle Testing Right Thumb Reason Not Measured WFL Left Thumb Flexion (fingers C8) 5 Normal Extension (thumb C8) 4- Good- Adduction 5 Normal Abduction (fingers T1) 4- Good- Comments Fingers 2-4 strength is normal except with extension pain is present at lateral Ulnar side . Extensor digiti minimi is 5/5, no pain at wrist during testing. Hand Java Software Engineer/Pinch Strength Hand Dominance Hand Dominance Left Hand Strength Right Comments Opposition strength: 2nd, 3rd, and 5th digits 5/5. 4th digit 4-/5. Left Comments Opposition strength: 2nd, 3rd digits 5/5. 4th and 5th digits 4-/5. PT-OP-Q Treatments Start: 01/24/20 20:46 Freq: Status: Active Protocol: Document 02/25/20 14:59 LRN (Rec: 02/25/20 16:32 LRN [id number]) Therapeutic Exercises Supine Exercises Neck Ext Supine Exercise Name Neck Ext Reps/Minutes 10x 3 L wrist PROM Supine Exercise Name PROM stretch into ext (for flexors) Side right Reps/Minutes 4' Sitting Exercises Shoulder rolls Sitting Exercise Name Shoulder rolls (posterior) Side bilateral Reps/Minutes 5x Tricep ext Sitting Exercise Name Elbows above shoulders to start Side bilateral Resistance 3# wrapped above wrists Reps/Minutes 10x 2 Comments DC'd on Left due to onset of forearm pain during 2nd set of 10. Elbow curls Sitting Exercise Name Elbow curls: palm to body, palm up, palm down Side bilateral Resistance 5# wraped above wrists. Reps/Minutes 10x 3 Manual Therapy Treatment Manual Traction Cervical Details Sitting and Supine manual traction Reps/Duration 2' sitting, 6' supine Comments Carefully monitored pt response to treatment. Pt had pain relief of R lateral hand pain in sitting, and pain relief of R shoulder pain initially in supine. Ended traction due to onset of brachial and forearm pain. Decrease pain with approxiimation of C/S and when placed in sitting. Self-Care/Home Management Treatment Education Patient Education Joint Protection,Pain Management Other Education Discussed proper head/neck posture. Educated pt in neutral posturing and to try and position in neutral posturing, in sidelie, at nighttime if catching self sleeping on L side during the night. Educated pt in ex to reduce pain (neck ext, shoulder rolls) and discussed use of Hot Pack for pain management to the arm. PT-OP-R Modalities Start: 01/24/20 20:46 Freq: Status: Active Protocol: Document 02/25/20 14:59 LRN (Rec: 02/25/20 16:32 LRN [id number]) Electric Stimulation Electric Stimulation Neck Body Location Below occiput (under small rash bilaterally> UT Duration (Minutes) 10 Intensity 11 Target/Sweep Sweep Patient Position Hooklying Combined With Heat/Cold Hot Pack Hot Pack/Cold Pack Treatment Hot Pack Location Neck Patient Position Hooklying Treatment Duration (minutes) 10 Comments Used during E-Stim Paraffin Bath Treatment Left Hand Treatment Technique Dip-immersion:Pt had wax on for ~25' Wax Temperature (degrees F) 50 Number Wax Layers (layers) 6 Duration (minutes) 10 Patient Tolerance Good Spinal Traction Traction Treatment Cervical Intermittent Time On (Seconds) 10 Intermittent Time Off (Seconds) 10 Duration of Treatment (Minutes) 4 Traction Treatment Comment Manual traction. Sitting & Supine, 2' each PT-OP-T Assessment and Plan Start: 01/24/20 20:46 Freq: Status: Active Protocol: Document 02/25/20 14:59 LRN (Rec: 02/25/20 16:32 LRN [id number]) Physical Therapy Assessment Goals Three Impairment Pain R hand/arm rated 6/10. Short Term Goal (STG) Decrease R hand/arm pain to 4/ 10 and decrease onset by 50%. STG Duration 03/10/20 (02/21/20: MET GOAL) Sales And Leasing Agent Goal (LTG) Decrease R hand/arm pain rated 1-2/10 with minimal onset. LTG Duration 04/27/20 Two Impairment Pain L hand/arm rated 8/10. Short Term Goal (STG) Decrease L hand/arm pain to 6/ 10, and decreased onset by 50% . (01/31/20: Pain decreased after treatment from 4/10 to 1/10.) STG Duration 03/10/20 (02/21/20: MET GOAL) Detention Goal (LTG) Decrease L hand/arm pain to 3- 4/10 with minimal onset of severe pain. LTG Duration 04/27/20 One Impairment Lacks appropriate HEP Detention Goal (LTG) Pt will be independent with a self care HEP to manage onset of symptoms. LTG Duration 04/27/20 (02/21/20: Progressing) Assessment Summary Assessment Variable R arm pain symptoms during treatment. Poor tolerance to R Tricep strengthening with elbow above shoulder, with onset of forearm/elbow pain. Manual cervical traction in sitting initially reduced R lateral hand pain and in supine reduced R shoulder upper arm pain. After the manual cervical traction in supine, pain increased in the R shoulder with pain radiating to elbow. At end of therapy Tia had brachial & forearm pain with reports of heaviness ; therefore showing signs/ symptoms of neural involvement . Use of C/S E-Stim relieved the hand pain with no change in forearm/brachial pain. Active C. ext ex helped mildly reduce R arm pain from 7/10 to 5/10. Pt neck stability is poor with possible cervical neurological involvement. Physical Therapy Plan Frequency and Duration Frequency of Treatment 2x/Week Plan of Care Start Date 01/28/20 Plan of Care End Date 04/27/20 Other Referrals/Consults Referrals/Consults Recommended Recommend referral to Occupational Specialist for manufacture of nighttime wrist splint. Next Visit Focus/Plan Next Note Type Treatment Note Next Visit Plan Strengthening C/S, Biceps/ Triceps (elbows below shoulder )/Forearm, Paraffin Dip & US/modalities to L carpel tunnel. Active painfree wrist ROM ex's , Strengthening of wrist when pain appropriate. STM to forearms if needed, For cervical involvement with L elbow>little finger pain, consider very GENTLE manual traction.
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
--- NOTE | 2020-02-28 16:57 | PT-OP ANOTE ---
Fax sent to Dr Michael Chowdhury requesting referral for pt to get a nighttime volar ext splint.
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
--- NOTE | 2020-03-03 17:36 | PT.OTN ---
Current Diagnoses Muscle weakness (generalized) (03/03/20) Pain in right arm (03/03/20) Pain in left arm (03/03/20) Unspecified sprain of right wrist, initial encounter (03/03/20) Unspecified sprain of left wrist, initial encounter (03/03/20) Physical Therapy Treatment Note PT-OP-A Visit Information Start: 01/24/20 20:46 Freq: Status: Active Protocol: Document 03/03/20 08:15 LRN (Rec: 03/03/20 09:06 LRN [id number]) Out-Patient Physical Therapy Visit Information Visit Information Visit Type Treatment Note Visit Start Time 08:15 Visit Stop Time 09:06 Total Visit Minutes 51 Visit Number 9 Evaluation Information Evaluation Date 01/28/20 Precautions Precautions Hx of Depression (02/07/20) Lift Tolerance: approx 12 # BUE assimulating box lift/carry from floor level and 2# BUE assimulating placement/ removal tray from cart but greater than 12#/2# triggered increased pain. PT-OP-B Current Condition Start: 01/24/20 20:46 Freq: Status: Active Protocol: Document 01/28/20 08:19 LRN (Rec: 01/28/20 09:04 LRN [id number]) Current Condition History of Current Condition Onset Date 2 yrs ago, worsened 1 month ago when she picked up something heavy. 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 She states 3 months ago she was getting better, because she wasn't using her hands, then reports picking up something heavy that had handles and she heard a pop in her L wrist and was not able to use it for the rest of the day. Her L wrist pain has worsened with random numbness, tingling, and sharp pain in the wrists. She describes her pain as starting at the L little finger PIP joint that shoots up the arm to the lateral elbow. She states sometimes the pain starts at the lateral elbow shooting up to the posterior shoulder. She reports similar onset to the R hand and forearm to a lesser extent. Pt is L handed. Prior Treatments and Tests Pt reports X-rays taken showed no bony changes. Future Testing and Treatments Planned None. Treatment Goals Patient/Caregiver Goals Pt goals with therapy is to get released to work when better. Pt goal is to figure out what is going on. Pt goal is to functionally be able to lift and use hands without pain. 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 Current Functional Impairments (Reported) Functional Limitations- ADL's Pt is limited in use of her L hand and to a lesser extent her R hand. 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 Limited with lifting due to onset of bilateral wrist pain. Personal Factors Other Personal Factors That May Effect Pt is mother of 2 young Therapy/Recovery children ages 2.5 and 1.5 yrs old. History of depression. PT-OP-C Subjective Start: 01/24/20 20:46 Freq: Status: Active Protocol: Document 03/03/20 08:15 LRN (Rec: 03/03/20 09:06 LRN [id number]) OP-PT Subjective Patient Comments Patient Comments Doing better, no pain today yet. Just got up an hour ago. After last session hurt for 2 hours then was good. Still experiencing max pain 9/10. PT-OP-F Manual Assessment Start: 01/24/20 20:46 Freq: Status: Active Protocol: Document 01/28/20 08:19 LRN (Rec: 01/28/20 19:09 LRN [id number]) Manual Assessments Soft Tissue Assessment Soft Tissue Mobility Assessment L forearm tender to palpation anterior and posteriorly, and mildly in the Biceps, minimally in Triceps. Joint Mobility Assessment Joint Mobility Assessment Increased L wrist joint mobility with PA glide, Ulnar glide & carpals. PT-OP-H Neuro Start: 01/24/20 20:46 Freq: Status: Active Protocol: Document 01/28/20 08:19 LRN (Rec: 01/28/20 19:09 LRN [id number]) Sensation Evaluation Gross Sensation Gross Sensation WNL Deep Tendon Reflex & Clonus Assessment Deep Tendon Reflex Left Brachioradialis Deep Tendon Reflex 0 Absent Left Bicep Deep Tendon Reflex 0 Absent PT-OP-K Range of Motion Start: 01/24/20 20:46 Freq: Status: Active Protocol: Document 03/03/20 08:15 LRN (Rec: 03/03/20 17:34 LRN [id number]) Wrist Goniometric Range of Motion Wrist Right Wrist ROM WFL Yes Ulnar Deviation Active (degrees) 44 Radial Deviation Active (degrees) 32 Left Wrist ROM WFL No Ulnar Deviation Active (degrees) 32 Radial Deviation Active (degrees) 24 Thumb Goniometric Range of Motion Thumb Right Thumb ROM WFL Yes MCP Flexion Active (degrees) 38 IP Flexion Active (degrees) 90 Left Thumb ROM WFL No MCP Flexion Active (degrees) 30 IP Flexion Active (degrees) 90 PT-OP-L Special Tests Start: 01/24/20 20:46 Freq: Status: Active Protocol: Document 01/31/20 18:15 LRN (Rec: 01/31/20 18:13 LRN [id number]) Special Tests Cervical Spine Special Tests Traction Test Results Positive Comments Decrease in L shoulder pain Foraminal Compression Test Results Negative bilaterally Vertebral Artery Test Results Negative bilaterally PT-OP-M Strength Start: 01/24/20 20:46 Freq: Status: Active Protocol: Document 02/28/20 15:04 LRN (Rec: 02/28/20 17:01 LRN [id number]) Hand Insurance Healthcare Representative/Pinch Strength Hand Strength Right Comments Opposition strength is 5/5 Left Comments Opposition strength is 4-/5 with digits 2,4,5. Opposition strength is 3+/5 with digit 3. PT-OP-Q Treatments Start: 01/24/20 20:46 Freq: Status: Active Protocol: Document 03/03/20 08:15 LRN (Rec: 03/03/20 09:06 LRN [id number]) Therapeutic Exercises Sitting Exercises L wrist stretch Sitting Exercise Name Self passive UD/RD stretch Reps/Minutes 4' Wrist Pronation Resistance 1# L , 2# R Reps/Minutes 8x Wrist Supination Resistance 1# L , 2# R Reps/Minutes 8x Wrist RD Resistance 1# L , 2# R Reps/Minutes 8x Wrist UD Resistance 1# L , 2# R Reps/Minutes 8x Wrist Ext Resistance 1# L , 2# R Reps/Minutes 8x Wrist Flex Resistance 1# L , 2# R Reps/Minutes 8x Cervical Isometrics Sitting Exercise Name Flex, Ext, SB Reps/Minutes 12' Deep cervical neck flexor strengthening Sitting Exercise Name Neck elongation - active Reps/Minutes Before Each exercise Active sup/pron Reps/Minutes 10x 3 Shoulder rolls Sitting Exercise Name Shoulder rolls (posterior) Side bilateral Reps/Minutes 10x Comments Stretch to pecs w/mirror & much v. cuing Elbow curls Sitting Exercise Name Elbow Curl holding box Reps/Minutes 8x L wrist ext stretch Sitting Exercise Name Moving into L wrist ext w/ elbow straight for stretch Side left Reps/Minutes 10 H x 5 Self-Care/Home Management Treatment Education Patient Education Home Exercise Program Activities Self-Care/Home Management Activities Issued & reviewed HEP: Isometric Cervical Flex, Ext, and SB. Written I/S for pt to do left: wrist stretch Flexors, UD/RD, Pec Minor stretch with shoulder rolls, and active elbow flex/ext & wrist. PT-OP-R Modalities Start: 01/24/20 20:46 Freq: Status: Active Protocol: Document 03/03/20 08:15 LRN (Rec: 03/03/20 09:06 LR [id number]) Hot Pack/Cold Pack Treatment Cold Pack Location L forearm, neck Treatment Duration (minutes) 20 Comments 10' during wrist ex to wrist/ forearm 10' at end of therapy ice to neck/forearm PT-OP-T Assessment and Plan Start: 01/24/20 20:46 Freq: Status: Active Protocol: Document 03/03/20 08:15 LRN (Rec: 03/03/20 09:06 LRN [id number]) Physical Therapy Assessment Goals Three Impairment Pain R hand/arm rated 6/10. Short Term Goal (STG) Decrease R hand/arm pain to 4/ 10 and decrease onset by 50%. STG Duration 03/10/20 (02/21/20: MET GOAL) Physical Design Engineer Goal (LTG) Decrease R hand/arm pain rated 1-2/10 with minimal onset. LTG Duration 04/27/20 Two Impairment Pain L hand/arm rated 8/10. Short Term Goal (STG) Decrease L hand/arm pain to 6/ 10, and decreased onset by 50% . (01/31/20: Pain decreased after treatment from 4/10 to 1/10.) STG Duration 03/10/20 (02/21/20: MET GOAL) Physical Design Engineer Goal (LTG) Decrease L hand/arm pain to 3- 4/10 with minimal onset of severe pain. (03/03/20: Worst pain is 9/10) LTG Duration 04/27/20 One Impairment Lacks appropriate HEP Usp Goal (LTG) Pt will be independent with a self care HEP to manage onset of symptoms. LTG Duration 04/27/20 (02/21/20: Progressing) Progress Towards Goals Progress Towards Goals Slow Progress due to Activity Tolerance Assessment Summary Assessment A little pain at end of wrist ex's in L thumb & radial side of wrist/forearm. Pt may need thumb splint in order to increase tolerance to exercise while in therapy. She has tightness of the UD's & RD's. Pt has low tolerance to strengthening with onset of wrist pain with minimal resistance. Use of ice helped to eliminate wrist pain at end of therapy. Physical Therapy Plan Frequency and Duration Frequency of Treatment 2x/Week Plan of Care Start Date 01/28/20 Plan of Care End Date 04/27/20 Next Visit Focus/Plan Next Note Type Treatment Note Next Visit Plan As tolerated: Strengthening C/ S, Biceps/Triceps (elbows below shoulder)/Forearm, Paraffin Dip & US/modalities to L carpel tunnel as needed. Active painfree wrist ROM ex's , Strengthening of wrist when pain appropriate. STM to forearms if needed, For cervical involvement with L elbow>little finger pain, consider very GENTLE manual traction.
--- NOTE | 2020-03-06 23:14 | PT.OPPN ---
Current Diagnoses Muscle weakness (generalized) (03/06/20) Pain in right arm (03/06/20) Pain in left arm (03/06/20) Unspecified sprain of right wrist, initial encounter (03/06/20) Unspecified sprain of left wrist, initial encounter (03/06/20) Physical Therapy Progress Note PT-OP-A Visit Information Start: 01/24/20 20:46 Freq: Status: Active Protocol: Document 03/06/20 08:15 LRN (Rec: 03/06/20 09:06 LRN [id number]) Out-Patient Physical Therapy Visit Information Visit Information Visit Type Progress Note Visit Start Time 08:15 Visit Stop Time 09:06 Total Visit Minutes 51 Visit Number 10 Evaluation Information Evaluation Date 01/28/20 Precautions Precautions Hx of Depression (02/07/20) Lift Tolerance: approx 12 # BUE assimulating box lift/carry from floor level and 2# BUE assimulating placement/ removal tray from cart but greater than 12#/2# triggered increased pain. PT-OP-B Current Condition Start: 01/24/20 20:46 Freq: Status: Active Protocol: Document 01/28/20 08:19 LRN (Rec: 01/28/20 09:04 LRN [id number]) Current Condition History of Current Condition Onset Date 2 yrs ago, worsened 1 month ago when she picked up something heavy. 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 She states 3 months ago she was getting better, because she wasn't using her hands, then reports picking up something heavy that had handles and she heard a pop in her L wrist and was not able to use it for the rest of the day. Her L wrist pain has worsened with random numbness, tingling, and sharp pain in the wrists. She describes her pain as starting at the L little finger PIP joint that shoots up the arm to the lateral elbow. She states sometimes the pain starts at the lateral elbow shooting up to the posterior shoulder. She reports similar onset to the R hand and forearm to a lesser extent. Pt is L handed. Prior Treatments and Tests Pt reports X-rays taken showed no bony changes. Future Testing and Treatments Planned None. Treatment Goals Patient/Caregiver Goals Pt goals with therapy is to get released to work when better. Pt goal is to figure out what is going on. Pt goal is to functionally be able to lift and use hands without pain. 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 Current Functional Impairments (Reported) Functional Limitations- ADL's Pt is limited in use of her L hand and to a lesser extent her R hand. 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 Limited with lifting due to onset of bilateral wrist pain. Personal Factors Other Personal Factors That May Effect Pt is mother of 2 young Therapy/Recovery children ages 2.5 and 1.5 yrs old. History of depression. PT-OP-C Subjective Start: 01/24/20 20:46 Freq: Status: Active Protocol: Document 03/06/20 08:15 LRN (Rec: 03/06/20 09:06 LRN [id number]) OP-PT Subjective Patient Comments Patient Comments No pain to start. Hands have been going numb more. R hand has been starting to hurt because using it more. Pain in R hand is ranges 0-8/10 with pain onset 30% of the time. L hand pain ranges 0-8/ 10 with onset 50% of the time. Patient Questionnaires Other Questionnaire Name and Score Quick Dash UE Score of 57.5 calculated with one question missing, indicating 40 to 59% impaired (Score 40-59). PT-OP-F Manual Assessment Start: 01/24/20 20:46 Freq: Status: Active Protocol: Document 01/28/20 08:19 LRN (Rec: 01/28/20 19:09 LRN [id number]) Manual Assessments Soft Tissue Assessment Soft Tissue Mobility Assessment L forearm tender to palpation anterior and posteriorly, and mildly in the Biceps, minimally in Triceps. Joint Mobility Assessment Joint Mobility Assessment Increased L wrist joint mobility with PA glide, Ulnar glide & carpals. PT-OP-H Neuro Start: 01/24/20 20:46 Freq: Status: Active Protocol: Document 01/28/20 08:19 LRN (Rec: 01/28/20 19:09 [facility] [id number]) Sensation Evaluation Gross Sensation Gross Sensation WNL Deep Tendon Reflex & Clonus Assessment Deep Tendon Reflex Left Brachioradialis Deep Tendon Reflex 0 Absent Left Bicep Deep Tendon Reflex 0 Absent PT-OP-K Range of Motion Start: 01/24/20 20:46 Freq: Status: Active Protocol: Document 03/06/20 08:15 LRN (Rec: 03/06/20 09:06 [facility] [id number]) Wrist Goniometric Range of Motion Wrist Measured in Degrees Right Flexion Active (degrees) 90 Extension Active (degrees) 68 Extension Passive (degrees) 90 Ulnar Deviation Active (degrees) 60 Ulnar Deviation Passive (degrees) 60 Radial Deviation Active (degrees) 25 Radial Deviation Passive (degrees) 25 Left Wrist ROM WFL No Flexion Active (degrees) 48 Flexion Passive (degrees) 90 Extension Active (degrees) 38 Extension Passive (degrees) 90 Ulnar Deviation Active (degrees) 35 Ulnar Deviation Passive (degrees) 35 Radial Deviation Active (degrees) 30 Radial Deviation Passive (degrees) 32 ROM Limitations Wrist Limitations of Range of Motion Pain Comments Pain with PROM R Hand: L Hand: Ext pain is at Wrist ext ms. Thumb Goniometric Range of Motion Thumb Measured in Degrees Right MCP Flexion Active (degrees) 26 MCP Extension Active (0 degrees) 0 H CMC Extension Active (degrees) 30 Left Thumb ROM WFL No MCP Flexion Active (degrees) 30 MCP Extension Active (0 degrees) 0 H CMC Extension Active (degrees) 26 Thumb ROM Limitations Thumb Range of Motion Limitations Pain Comments MCP: Active Flex: Lacking 3 deg's left. CMC: Active Flex: Lacking 4 deg's left, lacking 3 deg's right. PT-OP-L Special Tests Start: 01/24/20 20:46 Freq: Status: Active Protocol: Document 03/06/20 08:15 LRN (Rec: 03/06/20 09:06 [facility] [id number]) Special Tests Cervical Spine Special Tests Upper Limb Tension Test Test Results L: Pain radiating from wrist to forearms Comments Ulnar side bilaterally Traction Test Results Increased L shoulder pain. Foraminal Compression Test Results Positive Comments Increases pain in forearms and hands Wrist/Hand Special Tests [place]'s Test Results Postive L hand Comments R hand: pain is on ulnar side. Other Special Tests Special Tests Phalen'sTest: Negative Bilaterally. PT-OP-M Strength Start: 01/24/20 20:46 Freq: Status: Active Protocol: Document 03/06/20 08:15 LRN (Rec: 03/06/20 09:06 LRN [id number]) Elbow/Forearm Strength Elbow and Forearm Manual Muscle Testing Right Flexion (C6) 5 Normal Extension (C7) 4 Good Pronation 4 Good Supination 3 Fair Left Flexion (C6) 4 Good Extension (C7) 4 Good Pronation 4 Good Supination 3 Fair Wrist Strength Wrist Manual Muscle Testing Right Flexion (C7) 3 Fair Extension (C6) 5 Normal Ulnar Deviation 4 Good Radial Deviation 5 Normal Left Flexion (C7) 3 Fair Extension (C6) 4 Good Ulnar Deviation 3 Fair Radial Deviation 3 Fair Hand Educational Psychologist/Pinch Strength Hand Strength Right Educational Psychologist (lbs) 28 Comments Educational Psychologist 13 kg Left Educational Psychologist (lbs) 10 Comments Educational Psychologist 5 kg PT-OP-T Assessment and Plan Start: 01/24/20 20:46 Freq: Status: Active Protocol: Document 03/06/20 08:15 LRN (Rec: 03/06/20 09:06 [facility] [id number]) Physical Therapy Assessment Rehab Potential Rehabilitation Potential Fair Evaluation Complexity Number of Personal Factors/Comorbidities 1-2 Number of Body Systems Impaired 4 or More Clinical Presentation at Evaluation Evolving Impairments Impairments Activity Tolerance,Functional Activities,Pain,ROM,Soft Tissue Mobility,Strength Goals Five Impairment Decreased Wrist/forearm strength Short Term Goal (STG) Improve wrist strength (flex/ ext) and forearm (sup/pron) to 5/5. 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 LTG Duration 04/27/20 Four Impairment Decreased Hand strength (Educational Psychologist 10# left, 28# right) Short Term Goal (STG) Improve Educational Psychologist strength to 30# bilaterally, with pt able to carry a tray weight of 5# and lift 10# box (pots, pans, dishes) STG Duration 03/31/20 [facility] Goal (LTG) Improve Educational Psychologist strength to 50# bilaterally, with pt able to return to her prior level of function (wash pots, pans, & dishes. LTG Duration 04/27/20 Three Impairment Pain R hand/arm rated 6/10. Short Term Goal (STG) Decrease R hand/arm pain to 4/ 10 and decrease onset by 50%. (03/06/20: Pain ranges 0-8/10 with onset 30% of the time). STG Duration 03/10/20 (02/21/20: MET GOAL) [facility] Goal (LTG) Decrease R hand/arm pain rated 1-2/10 with minimal onset. (03/06/20: Pain ranges 0-8/10) LTG Duration 04/27/20 Two Impairment Pain L hand/arm rated 8/10. Short Term Goal (STG) Decrease L hand/arm pain to 6/ 10, and decreased onset by 50% . 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 LTG Duration 04/27/20 (02/21/20: Progressing) Progress Towards Goals Progress Towards Goals Slow Progress due to Activity Tolerance Assessment Summary Assessment The pt has made some progress in decreasing her L wrist pain , but today she comes reporting her R wrist is beginning to bother her from increased from resting the L wrist. The pt is variable in her pain complaints, which she attributes to variable required use of her hands. She is having the most discomfort first thing in the morning; therefore the pt would benefit greatly form a nighttime splint to minimize poor wrist positioning and decrease her pain on a daily basis. Her bilateral wrist mobility has improved overall, and her pain complaints are less. She is now ready to start an UE strengthening program, although her tolerance is quite low and progress is expected to be very slow. The pt shows signs and symptoms of cervical involvement; therefore further assessment to rule out cervical neuropathy would be appropriate. She also shows signs of thumb tendonitis and possible mechanical dysfunction at the wrist. Further assessment of her thumb joint and carpal bones may also be needed. I would recommend the pt continue with therapy for 4-6 more weeks for a progressive strengthening program of her UE's, to include neck/shoulder stabilization. The pt is not yet ready to return to her prior job duties as her tolerance to activity and UE strength is still quite limited. The pt will need to discuss with her physician, in obtaining an occupational therapy referral from a Certified Hand Therapist (CHT) in order to have a nighttime volar extension splint made. Physical Therapy Plan Frequency and Duration Frequency of Treatment 2x/Week Plan of Care Start Date 01/28/20 Plan of Care End Date 04/27/20 Therapeutic Interventions Therapeutic Interventions Home Exercise Program,Joint Mobilizations,Manual Therapy, Neuromuscular Re-education, Patient/Caregiver Education, Self-Care/Home Management,Soft Tissue Mobilization,Taping, Therapeutic Exercises Modalities Cold Pack/Ice Massage,Electric Stimulation,Hot Packs, Iontophoresis,Paraffin Bath, Ultrasound Other Therapeutic Interventions 4mg/ml Dexamethasone with Sodium Phospate Other Referrals/Consults Referrals/Consults Recommended Recommend referral to a certified hand specialist for a custom made L volar splint to prevent fingers locking into flexion during sleep in order to improve quality of sleep and reduce L wrist/arm pain. Possible OTR/L, CHT's: Kevin Costello @ [facility] or Adrian Schwab @ [facility], both in [place], [place]. Recommend pt assessment of Cervical spine for involvement due to onset of what appears to be radicular pain with manual cervical compression and after manual cervical traction. She may need imaging to rule out ligamentous dysfunction of the wrist tendons and carpel bones. Next Visit Focus/Plan Next Note Type Treatment Note Next Visit Plan As tolerated: Strengthening C/ S, Biceps/Triceps (elbows below shoulder)/Forearm, and hands. Paraffin Dip & US/modalities to L carpel tunnel as needed. Active painfree wrist ROM ex's , Strengthening of L>R wrist. STM to forearms if needed. Cervical stabilization.
--- NOTE | 2020-03-10 18:09 | PT.OTN ---
Current Diagnoses Muscle weakness (generalized) (03/10/20) Pain in right arm (03/10/20) Pain in left arm (03/10/20) Unspecified sprain of right wrist, initial encounter (03/10/20) Unspecified sprain of left wrist, initial encounter (03/10/20) Physical Therapy Treatment Note PT-OP-A Visit Information Start: 01/24/20 20:46 Freq: Status: Active Protocol: Document 03/10/20 08:14 LRN (Rec: 03/10/20 09:01 LRN [id number]) Out-Patient Physical Therapy Visit Information Visit Information Visit Type Treatment Note Visit Start Time 08:14 Visit Stop Time 08:59 Total Visit Minutes 45 Visit Number 11 Evaluation Information Evaluation Date 01/28/20 Precautions Precautions Hx of Depression (02/07/20) Lift Tolerance: approx 12 # BUE assimulating box lift/carry from floor level and 2# BUE assimulating placement/ removal tray from cart but greater than 12#/2# triggered increased pain. PT-OP-B Current Condition Start: 01/24/20 20:46 Freq: Status: Active Protocol: Document 01/28/20 08:19 LRN (Rec: 01/28/20 09:04 LRN [id number]) Current Condition History of Current Condition Onset Date 2 yrs ago, worsened 1 month ago when she picked up something heavy. 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 She states 3 months ago she was getting better, because she wasn't using her hands, then reports picking up something heavy that had handles and she heard a pop in her L wrist and was not able to use it for the rest of the day. Her L wrist pain has worsened with random numbness, tingling, and sharp pain in the wrists. She describes her pain as starting at the L little finger PIP joint that shoots up the arm to the lateral elbow. She states sometimes the pain starts at the lateral elbow shooting up to the posterior shoulder. She reports similar onset to the R hand and forearm to a lesser extent. Pt is L handed. Prior Treatments and Tests Pt reports X-rays taken showed no bony changes. Future Testing and Treatments Planned None. Treatment Goals Patient/Caregiver Goals Pt goals with therapy is to get released to work when better. Pt goal is to figure out what is going on. Pt goal is to functionally be able to lift and use hands without pain. 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 Current Functional Impairments (Reported) Functional Limitations- ADL's Pt is limited in use of her L hand and to a lesser extent her R hand. 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 Limited with lifting due to onset of bilateral wrist pain. Personal Factors Other Personal Factors That May Effect Pt is mother of 2 young Therapy/Recovery children ages 2.5 and 1.5 yrs old. History of depression. PT-OP-C Subjective Start: 01/24/20 20:46 Freq: Status: Active Protocol: Document 03/10/20 08:14 LRN (Rec: 03/10/20 09:01 LRN [id number]) OP-PT Subjective Patient Comments Patient Comments Primary physician is sending her to Dr. Lucero and she had a neck X-ray (03/07/20) was found with cervical lordosis, and was to cont PT. Pt is not released to work for another 6-8 wk. Hasn't done much; therefore no pain in UE's. Pain ending on L lateral forearm after ex was 4/10. PT-OP-F Manual Assessment Start: 01/24/20 20:46 Freq: Status: Active Protocol: Document 01/28/20 08:19 LRN (Rec: 01/28/20 19:09 LRN [id number]) Manual Assessments Soft Tissue Assessment Soft Tissue Mobility Assessment L forearm tender to palpation anterior and posteriorly, and mildly in the Biceps, minimally in Triceps. Joint Mobility Assessment Joint Mobility Assessment Increased L wrist joint mobility with PA glide, Ulnar glide & carpals. PT-OP-H Neuro Start: 01/24/20 20:46 Freq: Status: Active Protocol: Document 01/28/20 08:19 LRN (Rec: 01/28/20 19:09 [facility] [id number]) Sensation Evaluation Gross Sensation Gross Sensation WNL Deep Tendon Reflex & Clonus Assessment Deep Tendon Reflex Left Brachioradialis Deep Tendon Reflex 0 Absent Left Bicep Deep Tendon Reflex 0 Absent PT-OP-K Range of Motion Start: 01/24/20 20:46 Freq: Status: Active Protocol: Document 03/06/20 08:15 LRN (Rec: 03/06/20 09:06 [facility] [id number]) Wrist Goniometric Range of Motion Wrist Right Flexion Active (degrees) 90 Extension Active (degrees) 68 Extension Passive (degrees) 90 Ulnar Deviation Active (degrees) 60 Ulnar Deviation Passive (degrees) 60 Radial Deviation Active (degrees) 25 Radial Deviation Passive (degrees) 25 Left Wrist ROM WFL No Flexion Active (degrees) 48 Flexion Passive (degrees) 90 Extension Active (degrees) 38 Extension Passive (degrees) 90 Ulnar Deviation Active (degrees) 35 Ulnar Deviation Passive (degrees) 35 Radial Deviation Active (degrees) 30 Radial Deviation Passive (degrees) 32 ROM Limitations Wrist Limitations of Range of Motion Pain Comments Pain with PROM R Hand: L Hand: Ext pain is at Wrist ext ms. Thumb Goniometric Range of Motion Thumb Right MCP Flexion Active (degrees) 26 MCP Extension Active (0 degrees) 0 H CMC Extension Active (degrees) 30 Left Thumb ROM WFL No MCP Flexion Active (degrees) 30 MCP Extension Active (0 degrees) 0 H CMC Extension Active (degrees) 26 Thumb ROM Limitations Thumb Range of Motion Limitations Pain Comments MCP: Active Flex: Lacking 3 deg's left. CMC: Active Flex: Lacking 4 deg's left, lacking 3 deg's right. PT-OP-L Special Tests Start: 01/24/20 20:46 Freq: Status: Active Protocol: Document 03/06/20 08:15 LRN (Rec: 03/06/20 09:06 [facility] [id number]) Special Tests Cervical Spine Special Tests Upper Limb Tension Test Test Results L: Pain radiating from wrist to forearms Comments Ulnar side bilaterally Traction Test Results Increased L shoulder pain. Foraminal Compression Test Results Positive Comments Increases pain in forearms and hands Wrist/Hand Special Tests [place]'s Test Results Postive L hand Comments R hand: pain is on ulnar side. Other Special Tests Special Tests Phalen'sTest: Negative Bilaterally. PT-OP-M Strength Start: 01/24/20 20:46 Freq: Status: Active Protocol: Document 03/06/20 08:15 LRN (Rec: 03/06/20 09:06 LRN [id number]) Elbow/Forearm Strength Elbow and Forearm Manual Muscle Testing Right Flexion (C6) 5 Normal Extension (C7) 4 Good Pronation 4 Good Supination 3 Fair Left Flexion (C6) 4 Good Extension (C7) 4 Good Pronation 4 Good Supination 3 Fair Wrist Strength Wrist Manual Muscle Testing Right Flexion (C7) 3 Fair Extension (C6) 5 Normal Ulnar Deviation 4 Good Radial Deviation 5 Normal Left Flexion (C7) 3 Fair Extension (C6) 4 Good Ulnar Deviation 3 Fair Radial Deviation 3 Fair Hand Psych Arnp/Pinch Strength Hand Strength Right Psych Arnp (lbs) 28 Comments Psych Arnp 13 kg Left Psych Arnp (lbs) 10 Comments Psych Arnp 5 kg PT-OP-Q Treatments Start: 01/24/20 20:46 Freq: Status: Active Protocol: Document 03/10/20 08:14 LRN (Rec: 03/10/20 09:01 LRN [id number]) Therapeutic Exercises Sitting Exercises L wrist stretch Sitting Exercise Name Self passive UD/RD stretch and stretch to wrist flexors Reps/Minutes 4' Wrist Pronation Sitting Exercise Name Pronation Side bilateral Resistance 2# Equipment Used hand wgt Reps/Minutes 15x 2 Wrist Supination Sitting Exercise Name Supination Side bilateral Resistance 2# Equipment Used hand wgt Reps/Minutes 10 x [address] Sitting Exercise Name Wrist RD Side bilateral Resistance 2# Reps/Minutes 10 x 2 Wrist UD Sitting Exercise Name Wrist UD Side bilateral Resistance 2# Reps/Minutes 10 x 2 Wrist Ext Sitting Exercise Name Wrsit Ext Reps/Minutes 10x Wrist Flex Sitting Exercise Name Wrist Flex Reps/Minutes 10x Elbow curls Sitting Exercise Name Elbow Curl Equipment Used 2# Reps/Minutes 8x Standing Exercises [facility] Sorting ex Standing Exercise Name Simulate [facility] sorting on tall green table. Reps/Minutes 1' body mechanics lifting box/ tray Standing Exercise Name Simulate Tray to Sink Reps/Minutes 8x Self-Care/Home Management Treatment Education Patient Education Body Mechanics,Posture Activities Self-Care/Home Management Activities Discussed at length pt's home situation of moving her 2 yr old from floor to her crib and gave recommendations for modifying activity to lessen stress on her wrists, and encouraged monitoring of her neck/shoulder posture. PT-OP-R Modalities Start: 01/24/20 20:46 Freq: Status: Active Protocol: Document 03/03/20 08:15 LRN (Rec: 03/03/20 09:06 LRN [id number]) Hot Pack/Cold Pack Treatment Cold Pack Location L forearm, neck Treatment Duration (minutes) 20 Comments 10' during wrist ex to wrist/ forearm 10' at end of therapy ice to neck/forearm PT-OP-T Assessment and Plan Start: 01/24/20 20:46 Freq: Status: Active Protocol: Document 03/10/20 08:14 LRN (Rec: 03/10/20 09:01 LRN [id number]) Physical Therapy Assessment Goals Five Impairment Decreased Wrist/forearm strength Short Term Goal (STG) Improve wrist strength (flex/ ext) and forearm (sup/pron) to 5/5. 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 LTG Duration 04/27/20 Four Impairment Decreased Hand strength (Psych Arnp 10# left, 28# right) Short Term Goal (STG) Improve Psych Arnp strength to 30# bilaterally, with pt able to carry a tray weight of 5# and lift 10# box (pots, pans, dishes) STG Duration 03/31/20 Dry Wall Plasterer Goal (LTG) Improve Psych Arnp strength to 50# bilaterally, with pt able to return to her prior level of function (wash pots, pans, & dishes. LTG Duration 04/27/20 Three Impairment Pain R hand/arm rated 6/10. Short Term Goal (STG) Decrease R hand/arm pain to 4/ 10 and decrease onset by 50%. (03/06/20: Pain ranges 0-8/10 with onset 30% of the time). STG Duration 03/10/20 (02/21/20: MET GOAL) Dry Wall Plasterer Goal (LTG) Decrease R hand/arm pain rated 1-2/10 with minimal onset. (03/06/20: Pain ranges 0-8/10) LTG Duration 04/27/20 Two Impairment Pain L hand/arm rated 8/10. Short Term Goal (STG) Decrease L hand/arm pain to 6/ 10, and decreased onset by 50% . (03/06/20: Pain ranges 0-8/10 with onset 50% of the time) STG Duration 03/10/20 (02/21/20: MET GOAL) Dry Wall Plasterer Goal (LTG) Decrease L hand/arm pain to 3- 4/10 with minimal onset of severe pain. (03/03/20: Worst pain is 9/10) LTG Duration 04/27/20 One Impairment Lacks appropriate HEP Dry Wall Plasterer Goal (LTG) Pt will be independent with a self care HEP to manage onset of symptoms. LTG Duration 04/27/20 (02/21/20: Progressing) Assessment Summary Assessment Pt was able to tolerate more exercise with arms below shoulder height. She had onset only of L lateral forearm. No pain onset with R UE. Pt work station per attempted simulation exercise appears to be very restricted to her ability to move and alternate use of her hands/ arms while working. She is unable to modify her activity due to dressing covering limitations and restrictive requirements of contact as presented by new COVID 19 outbreak. It make it very hard to modify her method of performing her job to minimize use of hands for lifting. 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 Paraffin Dip & US/modalities to L carpel tunnel as needed for pain and mobility increase . Active painfree wrist ROM ex's , Strengthening of L>R wrist. STM to forearms if needed. Cervical stabilization.
--- NOTE | 2020-03-13 09:44 | PT.OTN ---
Current Diagnoses Muscle weakness (generalized) (03/13/20) Pain in right arm (03/13/20) Pain in left arm (03/13/20) Unspecified sprain of right wrist, initial encounter (03/13/20) Unspecified sprain of left wrist, initial encounter (03/13/20) Physical Therapy Treatment Note PT-OP-A Visit Information Start: 01/24/20 20:46 Freq: Status: Active Protocol: Document 03/13/20 08:17 LRN (Rec: 03/13/20 09:43 LRN [id number]) Out-Patient Physical Therapy Visit Information Visit Information Visit Type Treatment Note Visit Start Time 08:17 Visit Stop Time 09:07 Total Visit Minutes 50 Visit Number 12 Evaluation Information Evaluation Date 01/28/20 Precautions Precautions Hx of Depression (02/07/20) Lift Tolerance: approx 12 # BUE assimulating box lift/carry from floor level and 2# BUE assimulating placement/ removal tray from cart but greater than 12#/2# triggered increased pain. PT-OP-B Current Condition Start: 01/24/20 20:46 Freq: Status: Active Protocol: Document 01/28/20 08:19 LRN (Rec: 01/28/20 09:04 LRN [id number]) Current Condition History of Current Condition Onset Date 2 yrs ago, worsened 1 month ago when she picked up something heavy. 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 She states 3 months ago she was getting better, because she wasn't using her hands, then reports picking up something heavy that had handles and she heard a pop in her L wrist and was not able to use it for the rest of the day. Her L wrist pain has worsened with random numbness, tingling, and sharp pain in the wrists. She describes her pain as starting at the L little finger PIP joint that shoots up the arm to the lateral elbow. She states sometimes the pain starts at the lateral elbow shooting up to the posterior shoulder. She reports similar onset to the R hand and forearm to a lesser extent. Pt is L handed. Prior Treatments and Tests Pt reports X-rays taken showed no bony changes. Future Testing and Treatments Planned None. Treatment Goals Patient/Caregiver Goals Pt goals with therapy is to get released to work when better. Pt goal is to figure out what is going on. Pt goal is to functionally be able to lift and use hands without pain. 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 Current Functional Impairments (Reported) Functional Limitations- ADL's Pt is limited in use of her L hand and to a lesser extent her R hand. 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 Limited with lifting due to onset of bilateral wrist pain. Personal Factors Other Personal Factors That May Effect Pt is mother of 2 young Therapy/Recovery children ages 2.5 and 1.5 yrs old. History of depression. PT-OP-C Subjective Start: 01/24/20 20:46 Freq: Status: Active Protocol: Document 03/13/20 08:17 LRN (Rec: 03/13/20 09:43 LRN [id number]) OP-PT Subjective Patient Comments Patient Comments Pt states she has been trying to exercise and use more ice to the L wrist. States L&I will not pay for another wrist splint and she can't afford to pay for a splint made by a certified hand specialist. She states she will try to find one online that could be affordable. PT-OP-F Manual Assessment Start: 01/24/20 20:46 Freq: Status: Active Protocol: Document 01/28/20 08:19 LRN (Rec: 01/28/20 19:09 LRN [id number]) Manual Assessments Soft Tissue Assessment Soft Tissue Mobility Assessment L forearm tender to palpation anterior and posteriorly, and mildly in the Biceps, minimally in Triceps. Joint Mobility Assessment Joint Mobility Assessment Increased L wrist joint mobility with PA glide, Ulnar glide & carpals. PT-OP-H Neuro Start: 01/24/20 20:46 Freq: Status: Active Protocol: Document 01/28/20 08:19 LRN (Rec: 01/28/20 19:09 LRN [id number]) Sensation Evaluation Gross Sensation Gross Sensation WNL Deep Tendon Reflex & Clonus Assessment Deep Tendon Reflex Left Brachioradialis Deep Tendon Reflex 0 Absent Left Bicep Deep Tendon Reflex 0 Absent PT-OP-K Range of Motion Start: 01/24/20 20:46 Freq: Status: Active Protocol: Document 03/06/20 08:15 LRN (Rec: 03/06/20 09:06 [facility] [id number]) Wrist Goniometric Range of Motion Wrist Right Flexion Active (degrees) 90 Extension Active (degrees) 68 Extension Passive (degrees) 90 Ulnar Deviation Active (degrees) 60 Ulnar Deviation Passive (degrees) 60 Radial Deviation Active (degrees) 25 Radial Deviation Passive (degrees) 25 Left Wrist ROM WFL No Flexion Active (degrees) 48 Flexion Passive (degrees) 90 Extension Active (degrees) 38 Extension Passive (degrees) 90 Ulnar Deviation Active (degrees) 35 Ulnar Deviation Passive (degrees) 35 Radial Deviation Active (degrees) 30 Radial Deviation Passive (degrees) 32 ROM Limitations Wrist Limitations of Range of Motion Pain Comments Pain with PROM R Hand: L Hand: Ext pain is at Wrist ext ms. Thumb Goniometric Range of Motion Thumb Right MCP Flexion Active (degrees) 26 MCP Extension Active (0 degrees) 0 H CMC Extension Active (degrees) 30 Left Thumb ROM WFL No MCP Flexion Active (degrees) 30 MCP Extension Active (0 degrees) 0 H CMC Extension Active (degrees) 26 Thumb ROM Limitations Thumb Range of Motion Limitations Pain Comments MCP: Active Flex: Lacking 3 deg's left. CMC: Active Flex: Lacking 4 deg's left, lacking 3 deg's right. PT-OP-L Special Tests Start: 01/24/20 20:46 Freq: Status: Active Protocol: Document 03/06/20 08:15 LR (Rec: 03/06/20 09:06 [facility] [id number]) Special Tests Cervical Spine Special Tests Upper Limb Tension Test Test Results L: Pain radiating from wrist to forearms Comments Ulnar side bilaterally Traction Test Results Increased L shoulder pain. Foraminal Compression Test Results Positive Comments Increases pain in forearms and hands Wrist/Hand Special Tests [place]'s Test Results Postive L hand Comments R hand: pain is on ulnar side. Other Special Tests Special Tests Phalen'sTest: Negative Bilaterally. PT-OP-M Strength Start: 01/24/20 20:46 Freq: Status: Active Protocol: Document 03/06/20 08:15 LRN (Rec: 03/06/20 09:06 LRN [id number]) Elbow/Forearm Strength Elbow and Forearm Manual Muscle Testing Right Flexion (C6) 5 Normal Extension (C7) 4 Good Pronation 4 Good Supination 3 Fair Left Flexion (C6) 4 Good Extension (C7) 4 Good Pronation 4 Good Supination 3 Fair Wrist Strength Wrist Manual Muscle Testing Right Flexion (C7) 3 Fair Extension (C6) 5 Normal Ulnar Deviation 4 Good Radial Deviation 5 Normal Left Flexion (C7) 3 Fair Extension (C6) 4 Good Ulnar Deviation 3 Fair Radial Deviation 3 Fair Hand Correctional Program Specialist/Pinch Strength Hand Strength Right Correctional Program Specialist (lbs) 28 Comments Correctional Program Specialist 13 kg Left Correctional Program Specialist (lbs) 10 Comments Correctional Program Specialist 5 kg PT-OP-Q Treatments Start: 01/24/20 20:46 Freq: Status: Active Protocol: Document 03/13/20 08:17 LRN (Rec: 03/13/20 09:43 LRN [id number]) Therapeutic Exercises Sitting Exercises L wrist stretch Sitting Exercise Name Self passive UD/RD stretch and stretch to wrist flexors Reps/Minutes 4' Wrist Pronation Sitting Exercise Name Pronation Side bilateral Resistance 2# Equipment Used hand wgt Reps/Minutes 15x 2 Wrist Supination Sitting Exercise Name Supination Side bilateral Resistance 2# Equipment Used hand wgt Reps/Minutes [address] Sitting Exercise Name Wrist RD Side bilateral Resistance 2# Reps/Minutes 1.5 Wrist UD Sitting Exercise Name Wrist UD Side bilateral Resistance 2# Reps/Minutes 10 x 1 Wrist Ext Sitting Exercise Name Wrsit Ext Reps/Minutes 10x Wrist Flex Sitting Exercise Name Wrist Flex Reps/Minutes 10x L wrist ext stretch Sitting Exercise Name Moving into L wrist ext w/ elbow straight for stretch Side left Reps/Minutes 3' Self-Care/Home Management Treatment Education Patient Education Home Exercise Program Activities Self-Care/Home Management Activities Discussed at length pain management techniques to use with strengthening program. Discussed at length progression of HEP. Discussed & reviewed HEP previously issued with specific instructions for proper posturing head/neck during exercise. Issued, reviewed and discussed added HEP handouts for: wrist strengthing with T-Band and hand weights (wrist flex, ext, UD, RD, supination, pronation ) f/b wrist stretching to end. PT-OP-R Modalities Start: 01/24/20 20:46 Freq: Status: Active Protocol: Document 03/03/20 08:15 LRN (Rec: 03/03/20 09:06 LRN [id number]) Hot Pack/Cold Pack Treatment Cold Pack Location L forearm, neck Treatment Duration (minutes) 20 Comments 10' during wrist ex to wrist/ forearm 10' at end of therapy ice to neck/forearm PT-OP-T Assessment and Plan Start: 01/24/20 20:46 Freq: Status: Active Protocol: Document 03/13/20 08:17 LRN (Rec: 03/13/20 09:43 LRN [id number]) Physical Therapy Assessment Goals Five Impairment Decreased Wrist/forearm strength Short Term Goal (STG) Improve wrist strength (flex/ ext) and forearm (sup/pron) to 5/5. STG Duration 03/31/20 [place] Goal (LTG) Improve wrist strength and forearm strength with pt able to return to her prior level of function: Pt will need to wheel carts to floor; maintain floor stock in patient pantries; run room service trays, sets up and tends to dish machine; put away clean dishes, clean dish machine. LTG Duration 04/27/20 Four Impairment Decreased Hand strength (Correctional Program Specialist 10# left, 28# right) Short Term Goal (STG) Improve Correctional Program Specialist strength to 30# bilaterally, with pt able to carry a tray weight of 5# and lift 10# box (pots, pans, dishes) STG Duration 03/31/20 [facility] Goal (LTG) Improve Correctional Program Specialist strength to 50# bilaterally, with pt able to return to her prior level of function (wash pots, pans, & dishes. LTG Duration 04/27/20 Three Impairment Pain R hand/arm rated 6/10. Short Term Goal (STG) Decrease R hand/arm pain to 4/ 10 and decrease onset by 50%. (03/06/20: Pain ranges 0-8/10 with onset 30% of the time). STG Duration 03/10/20 (02/21/20: MET GOAL) [facility] Goal (LTG) Decrease R hand/arm pain rated 1-2/10 with minimal onset. (03/06/20: Pain ranges 0-8/10) LTG Duration 04/27/20 (03/06/20: Pain ranges 0-8/10) Two Impairment Pain L hand/arm rated 8/10. Short Term Goal (STG) Decrease L hand/arm pain to 6/ 10, and decreased onset by 50% . (03/06/20: Pain ranges 0-8/10 with onset 50% of the time) STG Duration 03/10/20 (02/21/20: MET GOAL) [place] Goal (LTG) Decrease L hand/arm pain to 3- 4/10 with minimal onset of severe pain. (03/03/20: Worst pain is 9/10) LTG Duration 04/27/20 (03/13/20: NOT MET, less onset but intensity at worst is same) One Impairment Lacks appropriate HEP [place] Goal (LTG) Pt will be independent with a self care HEP to manage onset of symptoms. (03/13/20: Pt was issued HEP: wrist/elbow strengthening with I/S for progression). LTG Duration 04/27/20 (03/13/20: Progressing) Progress Towards Goals Progress Towards Goals Slow Progress due to Activity Tolerance Assessment Summary Assessment Did not have time to review previously issued gripping ex for HEP due to lack of time, but pt does appear to have a good understanding of her HEP issued today for wrist/elbow progressive strengthening. Pt was not able to tolerate the same amount of ex as last session due to starting with L forearm wrist flexor occasional shooting pain. Pt had interesting symptoms of L forearm pain with L elbow curl and reduction of pain with L wrist ext; possibly due to compression of L wrist flexors with elbow curl and relaxation with wrist extension. Pt would benefit from continue progressive strengthening although progress is slow due to poor activity tolerance. Pt is unable to obtain a nighttime wrist splint by a certified hand specialist due to cost, so she is willing to try and obtain an over the counter one through [employer] if she can find one. Physical Therapy Plan Frequency and Duration Frequency of Treatment 2x/Week Plan of Care Start Date 01/28/20 Plan of Care End Date 04/27/20 Next Visit Focus/Plan Next Note Type Treatment Note Next Visit Plan Hold chart open ~ 2 wks until further confirmation from L&I regarding approval of more visits or not. If pt is able to get more PT visits approved, then assess wrist strength and financial aid advisor strength; restart gripping for progressive strengthening. Progress carefully Strengthening: C/S, Biceps/ Triceps (elbows below shoulder )/Forearm, and hands. Paraffin Dip & US/modalities to L carpel tunnel as needed for pain and mobility increase . Active painfree wrist ROM ex's , Strengthening of L>R wrist. STM to forearms if needed. Cervical stabilization.
--- NOTE | 2020-04-10 17:41 | PT-OP ANOTE ---
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
--- NOTE | 2020-04-10 17:54 | PT.OPDS ---
Current Diagnoses Muscle weakness (generalized) (03/13/20) Pain in right arm (03/13/20) Pain in left arm (03/13/20) Unspecified sprain of right wrist, initial encounter (03/13/20) Unspecified sprain of left wrist, initial encounter (03/13/20) Visit Care Team Role Provider Type Kirill Weiss DO Family Provider Physician Specialty: Family Practice Address: [address] [place] [address], [facility] Email: [email or web address] Attending Provider Physician Primary Care Provider Referring Provider Specialty: Internal Medicine Address: [address] [place] [address], [address], [place], [address] Email: [email or web address] Visit Number Visit Number 12 Discharge Summary PT-OP-B Current Condition Start: 01/24/20 20:46 Freq: Status: Active Protocol: Document 01/28/20 08:19 LRN (Rec: 01/28/20 09:04 LRN [id number]) Current Condition History of Current Condition Onset Date 2 yrs ago, worsened 1 month ago when she picked up something heavy. 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 She states 3 months ago she was getting better, because she wasn't using her hands, then reports picking up something heavy that had handles and she heard a pop in her L wrist and was not able to use it for the rest of the day. Her L wrist pain has worsened with random numbness, tingling, and sharp pain in the wrists. She describes her pain as starting at the L little finger PIP joint that shoots up the arm to the lateral elbow. She states sometimes the pain starts at the lateral elbow shooting up to the posterior shoulder. She reports similar onset to the R hand and forearm to a lesser extent. Pt is L handed. Prior Treatments and Tests Pt reports X-rays taken showed no bony changes. Future Testing and Treatments Planned None. Treatment Goals Patient/Caregiver Goals Pt goals with therapy is to get released to work when better. Pt goal is to figure out what is going on. Pt goal is to functionally be able to lift and use hands without pain. 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 Current Functional Impairments (Reported) Functional Limitations- ADL's Pt is limited in use of her L hand and to a lesser extent her R hand. 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 Limited with lifting due to onset of bilateral wrist pain. Personal Factors Other Personal Factors That May Effect Pt is mother of 2 young Therapy/Recovery children ages 2.5 and 1.5 yrs old. History of depression. PT-OP-C Subjective Start: 01/24/20 20:46 Freq: Status: Active Protocol: Document 03/13/20 08:17 LRN (Rec: 03/13/20 09:43 LRN [id number]) OP-PT Subjective Patient Comments Patient Comments Pt states she has been trying to exercise and use more ice to the L wrist. States L&I will not pay for another wrist splint and she can't afford to pay for a splint made by a certified hand specialist. She states she will try to find one online that could be affordable. PT-OP-F Manual Assessment Start: 01/24/20 20:46 Freq: Status: Active Protocol: Document 01/28/20 08:19 LRN (Rec: 01/28/20 19:09 LRN [id number]) Manual Assessments Soft Tissue Assessment Soft Tissue Mobility Assessment L forearm tender to palpation anterior and posteriorly, and mildly in the Biceps, minimally in Triceps. Joint Mobility Assessment Joint Mobility Assessment Increased L wrist joint mobility with PA glide, Ulnar glide & carpals. PT-OP-H Neuro Start: 01/24/20 20:46 Freq: Status: Active Protocol: Document 01/28/20 08:19 LRN (Rec: 01/28/20 19:09 LRN [id number]) Sensation Evaluation Gross Sensation Gross Sensation WNL Deep Tendon Reflex & Clonus Assessment Deep Tendon Reflex Left Brachioradialis Deep Tendon Reflex 0 Absent Left Bicep Deep Tendon Reflex 0 Absent PT-OP-K Range of Motion Start: 01/24/20 20:46 Freq: Status: Active Protocol: Document 03/06/20 08:15 LRN (Rec: 03/06/20 09:06 [facility] [id number]) Wrist Goniometric Range of Motion Wrist Right Flexion Active (degrees) 90 Extension Active (degrees) 68 Extension Passive (degrees) 90 Ulnar Deviation Active (degrees) 60 Ulnar Deviation Passive (degrees) 60 Radial Deviation Active (degrees) 25 Radial Deviation Passive (degrees) 25 Left Wrist ROM WFL No Flexion Active (degrees) 48 Flexion Passive (degrees) 90 Extension Active (degrees) 38 Extension Passive (degrees) 90 Ulnar Deviation Active (degrees) 35 Ulnar Deviation Passive (degrees) 35 Radial Deviation Active (degrees) 30 Radial Deviation Passive (degrees) 32 ROM Limitations Wrist Limitations of Range of Motion Pain Comments Pain with PROM R Hand: L Hand: Ext pain is at Wrist ext ms. Thumb Goniometric Range of Motion Thumb Right MCP Flexion Active (degrees) 26 MCP Extension Active (0 degrees) 0 H CMC Extension Active (degrees) 30 Left Thumb ROM WFL No MCP Flexion Active (degrees) 30 MCP Extension Active (0 degrees) 0 H CMC Extension Active (degrees) 26 Thumb ROM Limitations Thumb Range of Motion Limitations Pain Comments MCP: Active Flex: Lacking 3 deg's left. CMC: Active Flex: Lacking 4 deg's left, lacking 3 deg's right. PT-OP-L Special Tests Start: 01/24/20 20:46 Freq: Status: Active Protocol: Document 03/06/20 08:15 LRN (Rec: 03/06/20 09:06 [facility] [id number]) Special Tests Cervical Spine Special Tests Upper Limb Tension Test Test Results L: Pain radiating from wrist to forearms Comments Ulnar side bilaterally Traction Test Results Increased L shoulder pain. Foraminal Compression Test Results Positive Comments Increases pain in forearms and hands Wrist/Hand Special Tests [place]'s Test Results Postive L hand Comments R hand: pain is on ulnar side. Other Special Tests Special Tests Phalen'sTest: Negative Bilaterally. PT-OP-M Strength Start: 01/24/20 20:46 Freq: Status: Active Protocol: Document 03/06/20 08:15 LRN (Rec: 03/06/20 09:06 LRN [id number]) Elbow/Forearm Strength Elbow and Forearm Manual Muscle Testing Right Flexion (C6) 5 Normal Extension (C7) 4 Good Pronation 4 Good Supination 3 Fair Left Flexion (C6) 4 Good Extension (C7) 4 Good Pronation 4 Good Supination 3 Fair Wrist Strength Wrist Manual Muscle Testing Right Flexion (C7) 3 Fair Extension (C6) 5 Normal Ulnar Deviation 4 Good Radial Deviation 5 Normal Left Flexion (C7) 3 Fair Extension (C6) 4 Good Ulnar Deviation 3 Fair Radial Deviation 3 Fair Hand Vending Machine Attendant/Pinch Strength Hand Strength Right Vending Machine Attendant (lbs) 28 Comments Vending Machine Attendant 13 kg Left Vending Machine Attendant (lbs) 10 Comments Vending Machine Attendant 5 kg PT-OP-T Assessment and Plan Start: 01/24/20 20:46 Freq: Status: Active Protocol: Document 04/10/20 17:43 LRN (Rec: 04/10/20 17:53 LRN [id number]) Physical Therapy Assessment Goals Five Impairment Decreased Wrist/forearm strength Short Term Goal (STG) Improve wrist strength (flex/ ext) and forearm (sup/pron) to 5/5. STG Duration 03/31/20 [facility] Goal (LTG) Improve wrist strength and forearm strength with pt able to return to her prior level of function: Pt will need to wheel carts to floor; maintain floor stock in patient pantries; run room service trays, sets up and tends to dish machine; put away clean dishes, clean dish machine. LTG Duration 04/27/20 Four Impairment Decreased Hand strength (Vending Machine Attendant 10# left, 28# right) Short Term Goal (STG) Improve Vending Machine Attendant strength to 30# bilaterally, with pt able to carry a tray weight of 5# and lift 10# box (pots, pans, dishes) STG Duration 03/31/20 [facility] Goal (LTG) Improve Vending Machine Attendant strength to 50# bilaterally, with pt able to return to her prior level of function (wash pots, pans, & dishes. LTG Duration 04/27/20 Three Impairment Pain R hand/arm rated 6/10. Short Term Goal (STG) Decrease R hand/arm pain to 4/ 10 and decrease onset by 50%. (03/06/20: Pain ranges 0-8/10 with onset 30% of the time). STG Duration 03/10/20 (02/21/20: MET GOAL) Director Of Cardiology Service Line Goal (LTG) Decrease R hand/arm pain rated 1-2/10 with minimal onset. (03/06/20: Pain ranges 0-8/10) LTG Duration 04/27/20 (03/06/20: Pain ranges 0-8/10) Two Impairment Pain L hand/arm rated 8/10. Short Term Goal (STG) Decrease L hand/arm pain to 6/ 10, and decreased onset by 50% . (03/06/20: Pain ranges 0-8/10 with onset 50% of the time) STG Duration 03/10/20 (02/21/20: MET GOAL) [facility] Goal (LTG) Decrease L hand/arm pain to 3- 4/10 with minimal onset of severe pain. (03/03/20: Worst pain is 9/10) LTG Duration 04/27/20 (03/13/20: NOT MET, less onset but intensity at worst is same) One Impairment Lacks appropriate HEP Director Of Cardiology Service Line Goal (LTG) Pt will be independent with a self care HEP to manage onset of symptoms. (03/13/20: Pt was issued HEP: wrist/elbow strengthening with I/S for progression). LTG Duration 04/27/20 (03/13/20: Progressing) Progress Towards Goals Progress Towards Goals Slow Progress due to Activity Tolerance Assessment Summary Assessment On pt's last attended visit on 03/13/20, her HEP was not reviewed for previously issued gripping ex due to lack of time, but pt does appear to have a good understanding of her HEP issued overall, and for her last issued wrist/ elbow progressive strengthening ex's. Pt was not able to tolerate the same amount of ex as last session due to starting symptoms of L forearm wrist flexor occasional shooting pain. Pt had interesting symptoms of L forearm pain with L elbow curl and reduction of pain with L wrist ext; possibly due to compression of L wrist flexors with elbow curl and relaxation with wrist extension. It was recommended the pt continue therapy although progress was slow due to poor activity tolerance. Pt was unable to obtain a nighttime wrist splint by a certified hand specialist due to cost, and she was willing to try and obtain an over the counter one through [employer] if she could find one. See above goals for pt progress. Physical Therapy Plan Discharge Physical Therapy Discharge Reasons Patient Request Discharge Comments Pt reports she is being referred for continuation of therapy with a hand specialist . Thank you for your referral
== END 2020-04-14 13:32 ==
LOC: PHYS 08:15
PROVIDERS: Family Provider Family Medicine; PCP Student in an Organized Health Care Education/Training Program; Referring Provider Student in an Organized Health Care Education/Training Program; Visit Provider Student in an Organized Health Care Education/Training Program
DX: S63.502A Unspecified sprain of left wrist, initial encounter (principal); S63.501A Unspecified sprain of right wrist, initial encounter; M62.81 Muscle weakness (generalized); M79.602 Pain in left arm; M79.601 Pain in right arm
CPT/HCPCS: 95851; 97010; 97014; 97018; 97035; 97110; 97140; 97162; 97535; 97750; G0283

== ENCOUNTER → 2020-03-25 14:51 | Outpatient (CLI) | payer OTHER, MEDICAID, SELFPAY ==
[2020-03-26 09:45] LABS: COVID19 Sendout Not Detected (Not Detect)
== END ==
PROVIDERS: Family Provider Family Medicine; PCP Family Medicine; Visit Provider Physician Assistant
DX: Z11.59 Encounter for screening for other viral diseases (principal); J02.9 Acute pharyngitis, unspecified
CPT/HCPCS: 87070; 87635

== ENCOUNTER → 2020-04-23 11:39 | Outpatient (CLI) | payer OTHER, SELFPAY ==
--- NOTE | 2020-04-23 11:40 | DI.MRI.S_ITS ---
PROCEDURE: MR WRIST LT WO CON INDICATIONS: left wrist sprain TECHNIQUE: Noncontrast coronal proton density fast spin echo and T2 fast spin echo with fat saturation; coronal 3-D gradient echo, axial T1 spin echo and T2 fast spin echo with fat saturation, sagittal T1 spin echo through the wrist. COMPARISON: None. FINDINGS: Image quality: Excellent. Bones and cartilage: The carpal bones are normally aligned. No bone marrow contusions or fractures. No evidence for avascular necrosis. Nonspecific intraosseous cyst formation in proximal capitate is seen. Overlying cartilage surfaces appear normal. Carpal ligaments: The scapholunate and lunotriquetral ligaments appear intact. In the absence of intra-articular contrast, the extrinsic carpal ligaments are not well identified. On sagittal images, the pisohamate ligament appears intact. Triangular fibrocartilage complex: The triangular fibrocartilage appears intact. The adjacent meniscal homolog appears normal in the absence of intra-articular contrast. The extensor carpi ulnaris tendon is normal in location and morphology. Tendons and soft tissues: The carpal tunnel structures appear normal, including the median nerve. The ulnar nerve appears normal within Guyon's canal. All six extensor tendon compartments demonstrate normal morphology, without pathologic tendon sheath fluid. No soft tissue ganglion cysts. IMPRESSION: 1. No marrow edema. No fracture or dislocation. Nonspecific intraosseous cyst formation in proximal capitate. 2. Wrist tendons and ligaments are grossly intact. 3. Triangular fibrocartilage complex is grossly intact. Dictated by: Marky Gunter M.D. on 04/23/2020 at 12:46 Approved by: Marky Gunter M.D. on 04/23/2020 at 13:36
== END ==
PROVIDERS: Family Provider Family Medicine; PCP Family Medicine; Referring Provider Family Medicine; Visit Provider Family Medicine
DX: S63.502A Unspecified sprain of left wrist, initial encounter (principal); X58.XXXA Exposure to other specified factors, initial encounter
CPT/HCPCS: 73221

== ENCOUNTER → 2020-06-24 13:23 | Outpatient (CLI) | payer OTHER, MEDICAID, SELFPAY | PROVIDERS: Family Provider Family Medicine; PCP Family Medicine; Referring Provider Internal Medicine; Visit Provider Internal Medicine | DX: Z23 Encounter for immunization (principal) | CPT/HCPCS: 90471; 90686 ==

== ENCOUNTER → 2020-10-02 07:06 | Outpatient (CLI) | payer OTHER, MEDICAID, SELFPAY ==
--- NOTE | 2020-10-02 07:08 | DI.US.S_ITS ---
PROCEDURE: US PELVIC COMPLETE INDICATIONS: PAIN TECHNIQUE: Real-time scanning was performed of the pelvic organs, with image documentation. Additional endovaginal scanning was necessary due to incomplete visualization of the adnexal and endometrial structures by transabdominal scanning. COMPARISON: [facility], , PELVIC COMPLETE, 01/18/2020, 17:01. FINDINGS: Uterus: Uterus is normal in size at 4.1 x 4.3 x 9.3 cm. The endometrium measures 8.8 mm in combined thickness. Ovaries: Normal bilaterally Other: No pathologic free abdominal or pelvic fluid. IMPRESSION: Normal study, source of pain not found. Dictated by: Robert Baugh M.D. on 10/02/2020 at 11:29 Approved by: Robert Baugh M.D. on 10/03/2020 at 14:33
== END ==
PROVIDERS: Family Provider Family Medicine; PCP Nurse Practitioner Family; Referring Provider Obstetrics & Gynecology; Visit Provider Obstetrics & Gynecology
DX: R10.2 Pelvic and perineal pain (principal)
CPT/HCPCS: 76830; 76856

== ENCOUNTER → 2020-11-04 09:23 | Outpatient (CLI) | payer OTHER, MEDICAID, SELFPAY ==
[2020-11-04 10:49] LABS: Hematocrit 43.2 % (36-46); Hemoglobin 14.2 g/dL (12.0-16.0); Mean Corpuscular HGB Conc 32.8 % (30-36); Mean Corpuscular Hemoglobin 27.6 PG (26-34); Mean Corpuscular Volume 84.1 fL (80-100); Platelet Count 283 X10^3/uL (150-400); Red Blood Cell Count 5.14 X10^6/uL (4.0-5.2); Red Cell Distribution Width 13.7 % (11.6-14.8); White Blood Cell Count 7.8 X10^3/uL (4.5-11.0)
[2020-11-04 11:19] LABS: Alanine Aminotransferase 136 IU/L (<35); Albumin 4.4 g/dL (3.5-5.0); Albumin Globulin Ratio 1.5 (1.0-2.8); Alkaline Phosphatase 85 U/L (38-126); Aspartate Aminotransferase 96 IU/L (14-36); BUN Creatinine Ratio 15.6 (6-22); Bilirubin Total 0.6 mg/dL (0.2-1.3); Blood Urea Nitrogen 10 mg/dL (7-17); Calcium 9.3 mg/dL (8.4-10.2); Carbon Dioxide 26 mmol/L (22-32); Chloride 106 mmol/L (98-107); Cholesterol 115 mg/dL (140-199); Estimated Glomerular Filt Rate > 60.0 mL/min (>60); Glucose 106 mg/dL (70-100); HDL Cholesterol 44 mg/dL (40-60); HEMOLYSIS < 15 (0-50); LDL Cholesterol Calculated 55 mg/dL (<100); Sodium 141 mmol/L (137-145); Total Protein 7.4 g/dL (6.3-8.2); Triglycerides 80 mg/dL (35-150)
[2020-11-04 11:54] LABS: TSH w/ Reflex to FT4 1.89 uIU/mL (0.47-4.68)
[2020-11-04 18:13] LABS: Hemoglobin A1C% w Est Avg Glu 5.6 % (4.0-6.0)
== END ==
PROVIDERS: Family Provider Family Medicine; PCP Nurse Practitioner Family; Referring Provider Nurse Practitioner Family; Visit Provider Nurse Practitioner Family
DX: Z00.00 Encounter for general adult medical examination without abnormal findings (principal); R63.5 Abnormal weight gain; R73.9 Hyperglycemia, unspecified; Z13.6 Encounter for screening for cardiovascular disorders; Z68.44 Body mass index [BMI] 60.0-69.9, adult
CPT/HCPCS: 36415; 80053; 80061; 83036; 84443; 85027

== ENCOUNTER → 2020-11-06 11:49 | Outpatient (CLI) | payer OTHER, MEDICAID, SELFPAY ==
[2020-11-06 13:23] LABS: INR 1.1 (0.9-1.3); Prothrombin Time 12.4 SECONDS (10.1-12.7)
[2020-11-06 14:16] LABS: Alanine Aminotransferase 144 IU/L (<35); Albumin 4.7 g/dL (3.5-5.0); Albumin Globulin Ratio 1.6 (1.0-2.8); Alkaline Phosphatase 88 U/L (38-126); Aspartate Aminotransferase 105 IU/L (14-36); Bilirubin Total 0.8 mg/dL (0.2-1.3); Bilirubin Unconjugated 0.7 mg/dL (0.0-1.1); Globulin 2.9 g/dL (1.7-4.1); HEMOLYSIS 44 (0-50); Total Protein 7.6 g/dL (6.3-8.2)
[2020-11-07 08:28] LABS: HBsAg Screen Negative (Negative); Hepatitis A Antibody IgM Negative (Negative); Hepatitis B Core Antibody IgM Negative (Negative); Hepatitis C Antibody <0.1 s/co ratio (0.0-0.9)
[2020-11-08 19:47] LABS: ANA Screen, IFA Positive (.); Smooth Muscle Antibody 8 Units (0-19)
== END ==
PROVIDERS: Family Provider Family Medicine; PCP Nurse Practitioner Family; Referring Provider Nurse Practitioner Family; Visit Provider Nurse Practitioner Family
DX: R74.8 Abnormal levels of other serum enzymes (principal); Z68.44 Body mass index [BMI] 60.0-69.9, adult
CPT/HCPCS: 36415; 80074; 80076; 83516; 85610; 86038

== ENCOUNTER → 2020-11-10 07:00 | Outpatient (CLI) | payer OTHER, MEDICAID, SELFPAY ==
--- NOTE | 2020-11-10 07:01 | DI.US.S_ITS ---
PROCEDURE: US ABDOMEN LIMITED INDICATIONS: ELEVATED LFTS TECHNIQUE: Real-time focused scanning was performed of the abdomen, with image documentation. COMPARISON: None. FINDINGS: Liver is enlarged at 21.3 cm craniocaudad with moderate to moderately severe fatty infiltration throughout the liver. The gallbladder appears normal, as do the bile ducts. Pancreas visualized appears normal. Quality of visualization is somewhat limited by large body habitus. IMPRESSION: Fatty infiltration prominent through a enlarged liver, without adjacent ascites. Normal appearing gallbladder and bile ducts. Pancreas visualized appears normal. Limited quality of valuation due to overlying fatty infiltration within the liver, bowel gas, and body habitus. Dictated by: Robert Baugh M.D. on 11/10/2020 at 9:19 Approved by: Robert Baugh M.D. on 11/10/2020 at 9:21
== END ==
PROVIDERS: Family Provider Family Medicine; PCP Nurse Practitioner Family; Referring Provider Nurse Practitioner Family; Visit Provider Nurse Practitioner Family
DX: R74.8 Abnormal levels of other serum enzymes (principal); Z68.44 Body mass index [BMI] 60.0-69.9, adult; Z20.822 Contact with and (suspected) exposure to COVID-19
CPT/HCPCS: 76705; 87635

== ENCOUNTER → 2020-11-10 09:12 | Outpatient (CLI) | payer OTHER, MEDICAID, SELFPAY ==
[2020-11-10 09:41] LABS: COVID19 -Nasal RAPID Negative (Negative)
== END ==
PROVIDERS: Family Provider Family Medicine; PCP Nurse Practitioner Family; Referring Provider Obstetrics & Gynecology; Visit Provider Obstetrics & Gynecology
DX: Z01.812 Encounter for preprocedural laboratory examination (principal); Z20.822 Contact with and (suspected) exposure to COVID-19
CPT/HCPCS: 87635

== ENCOUNTER 2020-11-11 09:28 | Day surgery (SDC) | payer OTHER, MEDICAID, SELFPAY ==
[2020-11-11] VITALS (12 sets, daily range): BP systolic 122–144; BP diastolic 68–90; PULSE 61–95; RESP 12–18; TEMP 36.2–36.6; O2SAT 97–100; BMI 65.2
--- NOTE | 2020-11-11 | PATH_ITS ---
[facility] Accession Number: [id number] . 01 Material submitted: . vagina - INTROITAL MASS . 01 Clinical history: . SDC . 02 Diagnosis: Introital Mass, Excision: Polypoid fragments of squamous mucosa, consistent with benign fibroepithelial polyp (skin tag). No evidence of neoplasm. MRV 11/14/2020 1420 Local . 02 Comment: As part of routine quality assurance inspector, this case has been reviewed by Dr. Romo, who agrees there is no evidence of neoplasm. . 02 Electronically signed: . Anand Monson MD, PhD, Pathologist NPI- [id number] . 01 Gross description: . The specimen is received in formalin, labeled introital mass and consists of four irregular felder fragments of soft tissue ranging from 0.8-1.9 cm. The margins are inked and the specimen is entirely submitted. . A1: two bisected fragments (blue and green). A2: one bisected (blue) and one trisected fragment (green). (EA:[id number]) /MRV 11/12/2020 1408 Local . 02 Pathologist provided ICD-10: N89.8, L91.8 . 02 CPT . 165357 Performed at: 01 [facility] [address], [place], [place] [id number] MD Berto Nunn MD Phone: [phone] Performed at: 02 [facility] [address] [place], [place] [id number] MD Dariela Fontanez MD Phone: [phone]
[2020-11-11] MEDS: LACTATED RINGERS 1,000 ML 100 ML IV ×2 (10:51→12:54)
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
--- NOTE | 2020-11-11 10:54 | PM.PREOP ---
Pre-operative Note COVID-19 COVID-19 status: Negative Result date/Date tested (Pos, Neg/Pending): 11/10/20 Interval Note History & Physical reviewed/Exam performed by Physician: Yes Changes to H&P: No H&P completed within 30 days and has changed as indicated here:: 11/11/20
--- NOTE | 2020-11-11 11:30 | SUR.OPER ---
Lithotomy on padded OR bed, head on pillow, arms secured on padded arm boards at <90 degrees abduction. Legs secured in padded yellow fins stirrups.
--- NOTE | 2020-11-11 11:45 | PM.GYNOP.1 ---
Operative Date/Time/Diagnoses Date of procedure: 11/11/20 Time of procedure: 11:45 Pre-op diagnosis: Vulvar/vaginal mass Post-op diagnosis: same Procedure & Clinicians Procedure: Procedures Operation Date: 11/11/20 10:30 Actual Procedures Side Surgeon p Excision of Introital Mass (Vaginal) Aleah Sol MD Indications: Vulvar/vaginal mass Surgeon: Aleah Sol Anesthesia Type: General Operative Notes Findings: 2cm x 0.75 cm firm, mass at the right introitus Closure Type: primary Specimen(s): other (introital mass) Estimated blood loss (mL): 10 Blood products transfused: none Procedure in detail: AFTER INFORMED CONSENT WAS OBTAINED, THE PATIENT WAS TAKEN TO THE OPERATING ROOM WHERE SHE WAS PLACED IN THE DORSAL SUPINE POSITION. AFTER ADEQUATE LMA GENERAL ANESTHESIA WAS ACHIEVED, SHE WAS PLACED IN THE DORSAL LITHOTOMY POSITION, AND PREPPED AND DRAPED IN THE USUAL STERILE FASHION. A TIME-OUT WAS PERFORMED. A RIGHT ANGLE RETRACTOR WAS PLACED INTO THE VAGINA. 10 CC OF 0.25% MARCAINE WERE PLACED UNDERNEATH THE INTROITAL MASS. THE MASS WAS EXCISED IN AN ELLIPTICAL FASHION MEASURING 3 CM X 1 CM. FIVE SIMPLE INTERRUPTED SUTURES WITH 3 0 CHROMIC WERE PLACED FOR HEMOSTASIS. PRESSURE WAS HELD. THE AREA WAS OBSERVED FOR APPROXIMATELY 5 MINUTES AND THERE WAS NO BLEEDING. SPONGE, LAP, AND INSTRUMENT COUNTS WERE CORRECT X2. THE PATIENT TOLERATED THE PROCEDURE WELL, AND WAS TAKEN TO PACU IN STABLE CONDITION. Complications: none Post-operative Condition: stable Disposition: PACU Plan for aftercare: Home after recovery
[2020-11-11] MEDS: OXYCODONE/ACETAMINOPHEN 5/325 TABLET 1 TAB PO (11:54)
[2020-11-11] MEDS: ONDANSETRON 4 MG/2 ML INJ IV (11:54)
[2020-11-11] MEDS: FOSAPREPITANT 150 MG in SODIUM CHLORIDE 0.9% 150 ML 300 ML IV (12:51)
--- NOTE | 2020-11-11 13:56 | SUR.PHASEII ---
OUTPATIENT: LATE ENTRY: PRE-OP: PATIENT DIFFICULT IV START, OKAY TO PLACE PERIPHERAL MIDLINE IV BY DI NURSE PER DR. STRAUSS. CURRENTLY DR. NEVILLE HAS JUST CHECKED MOD TO LARGE BLEEDING TO HOVER MAT, BUSHRA AND SURGICAL BLUE PAD. NICOLE-PAD UNDER PATIENT WAS CLEAN. DR NEVILLE DETERMINED THIS IS OLD BLOOD FROM IN THE SURGICAL CASE AND PATIENT MAY DC HOME PER ORDERS.
== END 2020-11-11 14:30 | disposition home or self-care (01) ==
PROVIDERS: Family Provider Family Medicine; PCP Nurse Practitioner Family; Referring Provider Obstetrics & Gynecology; Visit Provider Obstetrics & Gynecology
PROC: (CPT 57135; principal; 2020-11-11 10:30)
DX: N89.8 Other specified noninflammatory disorders of vagina (principal); E66.9 Obesity, unspecified; Z68.44 Body mass index [BMI] 60.0-69.9, adult
CPT/HCPCS: 57135; 81025; J1100; J1453; J2250; J2405; J2704; J3010

== ENCOUNTER 2022-06-23 21:37 | Emergency (ER) | payer OTHER, MEDICAID, SELFPAY ==
[2022-06-23 21:42] VITALS: BP 154/89; PULSE 109; RESP 20; TEMP 36.1; O2SAT 100; BMI 65.2
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
[2022-06-23] MEDS: KETOROLAC 30 MG/ML VIAL IM (23:45)
[2022-06-23] MEDS: AMOXICILLIN/CLAV 875/125 MG 1 TAB PO (23:46)
[2022-06-23 23:54] VITALS: BP 150/88; PULSE 99; RESP 19; O2SAT 100
== END 2022-06-23 23:56 | disposition home or self-care (01) ==
PROVIDERS: Emergency Provider Emergency Medicine; Family Provider Family Medicine; PCP Nurse Practitioner Family
DX: H66.92 Otitis media, unspecified, left ear (principal); H72.92 Unspecified perforation of tympanic membrane, left ear
CPT/HCPCS: 96372; 99283; J1885